=== PATIENT | female | born 1970 | race Caucasian/White ===

== ENCOUNTER 2017-06-15 14:18 | Observation (INO) | payer MEDICAID ==
[2017-06-15 14:23] VITALS: BMI 27.4
[2017-06-15] MEDS ORDERED: Famotidine 20mg/50ml 20 MG/50 ML BAG IVPB STA (14:44)
[2017-06-15] MEDS ORDERED: Sodium Chloride 0.9% 1,000 ML IV STA (14:44)
--- NOTE | 2017-06-15 15:00 | ED PDOC ---
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 Patient is primarily sami speaking and her cotton sampler is translating for her. Prior to arrival patient was at her PMD office for chest pain evaluation and underwent an EKG. Due to her symptoms her PMD instructed her to visit the Emergency department. Patient describes her chest pain as a severe stabbing left sided chest pain, which radiates to her left arm and which is intermittent. her chest pain is exacerbated with exertion and movement. Of note she also experiences chronic upper abdominal which worsened over the past 3 days. Patient also notes occasional nausea but denies recent trauma, fever, chills, vomitting, diarrhea, SOB and bilateral lower extremity edema or any other complaints. Patient denies contraceptive use, recent travels, and history of blood clots. PMD: Time/Duration: 1 week Symptom Course: Intermittent Quality: Stabbing Severity Level: Severe Past Medical History - Provider Review Nursing Documentation Reviewed: Yes - Cardiac Hx Hypertension: Yes - Pulmonary Hx Respiratory Disorders: No - Neurological Hx Neurological Disorder: No - HEENT Hx HEENT Disorder: No - Renal Hx Renal Disorder: No - Endocrine/Metabolic Hx Endocrine Disorders: No - Hematological/Oncological Hx Blood Disorders: No - Integumentary Hx Dermatological Disorder: No - Musculoskeletal/Rheumatological Hx Musculoskeletal Disorders: No - Gastrointestinal Hx Gastrointestinal Disorders: No - Genitourinary/Gynecological Hx Genitourinary Disorders: No - Psychiatric Hx Emotional Abuse: No Hx Physical Abuse: No Hx Substance Use: No - Anesthesia Hx Malignant Hyperthermia: No - Suicidal Assessment Feels Threatened In Home Enviroment: No Family/Social History - Physician Review Nursing Documentation Reviewed: Yes Family/Social History: Diabetes (mother), CAD/ND (Mother) Smoking Status: Never Smoked Hx Alcohol Use: No Hx Substance Use: No Allergies/Home Meds Allergies/Adverse Reactions: Allergies Penicillins Allergy (Verified 06/15/17 20:23) RASH Home Medications: Home Meds Medication Instructions Recorded Confirmed Bisoprolol/HCTZ [Ziac 5 MG-6.25 MG] 1 tab PO DAILY 06/15/17 06/15/17 Losartan [Cozaar] 50 mg PO DAILY 06/15/17 06/15/17 Review of Systems - Physician Review All systems were reviewed & negative as marked: Yes - Review of Systems Constitutional: absent: Fevers, Night Sweats Respiratory: absent: SOB Cardiovascular: Chest Pain (left sided, radiates down left arm). absent: Edema Gastrointestinal: Abdominal Pain (Chronic), Nausea (Occasional). absent: Diarrhea, Vomiting Physical Exam Vital Signs Reviewed: Yes Vital Signs Temp Pulse Pulse Resp BP BP Pulse Ox 06/15/17 17:31 18 98 06/15/17 16:40 98.3 F 93 H 22 140/95 H 97 06/15/17 16:16 102 H 17 117/88 99 06/15/17 15:00 100 H 19 114/90 99 06/15/17 14:38 110 H 157/95 H 06/15/17 14:35 98.2 F 115 H 19 157/95 H 98 06/15/17 14:34 98.2 F 115 H 19 157/95 H 100 Temperature: Afebrile Blood Pressure: Hypertensive Pulse: Tachycardic Respiratory Rate: Normal Appearance: Positive for: Well-Appearing, Non-Toxic, Comfortable Pain Distress: None Mental Status: Positive for: Alert and Oriented X 3 - Systems Exam Head: Present: Atraumatic, Normocephalic Pupils: Present: PERRL Extroacular Muscles: Present: EOMI Conjunctiva: Present: Normal Mouth: Present: Moist Mucous Membranes Neck: Present: Normal Range of Motion Respiratory/Chest: Present: Clear to Auscultation, Good Air Exchange, Tender to Palpation (left sided chest wall tenderness to palpation, no ecchymosis). No: Respiratory Distress, Accessory Muscle Use Cardiovascular: Present: Regular Rate and Rhythm, Normal S1, S2. No: Murmurs Abdomen: Present: Tenderness (chronic upper abdominal tenderness to palpation), Normal Bowel Sounds. No: Distention, Peritoneal Signs, Rebound, Guarding Upper Extremity: Present: Normal Inspection, NORMAL PULSES. No: Cyanosis, Edema Lower Extremity: Present: Normal Inspection, NORMAL PULSES. No: Edema, CALF TENDERNESS Neurological: Present: GCS=15, CN II-XII Intact, Speech Normal Skin: Present: Warm, Dry, Normal Color. No: Rashes Psychiatric: Present: Alert, Oriented x 3, Normal Insight, Normal Concentration Medical Decision Making ED Course and Treatment: 06/15/17 14:43 Impression: A 46 year old female with left sided chest pain. Patient also notes chronic upper abdominal pain with nausea. Differential Diagnosis included but are not limited to: ACS vs. Musculoskeletal vs. Anemia vs. Low probability for PE Plan: -- Chest xray -- EKG -- Labs -- Aspirin, Pepcid and IV fluids -- Reassess and disposition Progress Notes: EKG shows sinus tachycardia at 117 BPM with normal intervals, no ST-segment elevations. Interpreted by me. 06/15/17 15:38 Labs reviewed. Troponin negative. Dimer negative. Case discussed with Dr. Dalal who will admit patient to telemetry observation. Report Date : 06/15/2017 16:02:46 Procedure: Chest xray Dictator : Elidia Interiano MD IMPRESSION: No active pulmonary disease. - Lab Interpretations Lab Results: 06/15/17 14:50 06/15/17 14:50 Lab Results 06/15/17 14:50: Hemoglobin A1c 5.4 06/15/17 14:50: Triglycerides 204 H, Cholesterol 179, LDL Cholesterol Direct 87 , HDL Cholesterol 51 06/15/17 14:50: PT 11.0, INR 0.97, APTT 31.9, D-Dimer, Quantitative < 200 06/15/17 14:50: Sodium 143, Potassium 3.9, Chloride 104, Carbon Dioxide 28, Anion Gap 15, BUN 14, Creatinine 0.6 L, Est GFR ( Amer) > 60, Est GFR ( Non-Af Amer) > 60, Random Glucose 115 H, Calcium 9.4, Magnesium 2.2, Total Bilirubin 0.4, AST 21, ALT 25, Alkaline Phosphatase 99, Lactate Dehydrogenase 267 L, Total Creatine Kinase 52, Troponin I < 0.01, Total Protein 7.5, Albumin 4.2, Globulin 3.2, Albumin/Globulin Ratio 1.3, Lipase 88 06/15/17 14:50: WBC 7.7, RBC 4.35, Hgb 12.1, Hct 37.4, MCV 86.0, MCH 27.8, MCHC 32.4, RDW 13.9, Plt Count 305, MPV 9.7, Gran % 61.8, Lymph % (Auto) 31.3, [place] % (Auto) 6.1 H, Eos % (Auto) 0.5 L, Baso % (Auto) 0.3, Gran # 4.74, Lymph # ( Auto) 2.4, [place] # (Auto) 0.5, Eos # (Auto) 0.0, Baso # (Auto) 0.02 I have reviewed the lab results: Yes - RAD Interpretation Radiology Orders: 06/15/17 14:43 CHEST PORTABLE [RAD] Stat - Medication Orders Current Medication Orders: Acetaminophen (Tylenol 325mg Tab) 650 mg PO Q4H PRN PRN Reason: Pain, moderate (4-7) Enoxaparin Sodium (Lovenox) 60 mg SC Q12H TU PRN Reason: Protocol Last Admin: 06/15/17 21:59 Dose: 60 mg Subcutaneous Administrations Document 06/15/17 21:59 AP (Rec: 06/15/17 21:59 AP [id number]) Injection Site MAR Injection Site Right Abdomen Charges for Administration # of Subcutaneous Administrations 1 Ketorolac Tromethamine (Toradol) 15 mg IVP Q8H PRN PRN Reason: Pain, severe (8-10) Losartan Potassium (Cozaar) 50 mg PO DAILY TU Ondansetron HCl (Zofran Inj) 4 mg IVP Q6H PRN PRN Reason: Nausea/Vomiting Oxycodone/Acetaminophen (Percocet 10/325 Mg Tab) 1 tab PO Q6H PRN PRN Reason: Pain, moderate (4-7) Discontinued Medications Acetaminophen (Tylenol 325mg Tab) 650 mg PO Q4H PRN PRN Reason: Fever >100.4 F Aspirin (Aspirin) 325 mg PO STAT STA Stop: 06/15/17 14:43 Last Admin: 06/15/17 15:25 Dose: 325 mg Famotidine (Pepcid 20mg/50ml Premix) 20 mg in 50 mls @ 100 mls/hr IVPB STAT STA Stop: 06/15/17 15:13 Last Admin: 06/15/17 15:25 Dose: 100 mls/hr eMAR Start Stop Document 06/15/17 15:25 [email or web address] (Rec: 06/15/17 15:25 [email or web address] [id number]) Intravenous Solution Start Date 06/15/17 Start Time 15:25 End Date 06/15/17 Sodium Chloride (Sodium Chloride 0.9%) 1,000 mls @ 999 mls/hr IV .Q1H1M STA Stop: 06/15/17 15:44 Last Admin: 06/15/17 15:24 Dose: 999 mls/hr eMAR Start Stop Document 06/15/17 15:24 [email or web address] (Rec: 06/15/17 15:25 [email or web address] [id number]) Intravenous Solution Start Date 06/15/17 Start Time 15:25 End Date 06/15/17 Ketorolac Tromethamine (Toradol) 30 mg IVP STAT STA Stop: 06/15/17 16:03 Last Admin: 06/15/17 16:27 Dose: 30 mg MAR Pain Assessment Document 06/15/17 16:27 [facility] (Rec: 06/15/17 16:28 [facility] [id number]) Pain Reassessment Is this a pain reassessment? No Sleep Is patient sleeping during reassessment? No Presence of Pain Presence of Pain Yes Pain Scale Used Pain Scale Used Numeric Location Pain Location Body Site Chest Description Description Constant Intensity of Pain at present 7 Pain Behavior Facial Grimacing Aggravating Factors Changing Position Alleviating Factors/Management Medication Techniques Alleviating Factors Medication IVP Administration Document 06/15/17 16:27 [facility] (Rec: 06/15/17 16:28 [facility] [id number]) Charges for Administration # of IVP Administrations 1 Losartan Potassium (Cozaar) 50 mg PO DAILY TU Losartan Potassium (Cozaar) 50 mg PO DAILY ONE Stop: 06/16/17 18:56 Losartan Potassium (Cozaar) 50 mg PO DAILY TU Losartan Potassium (Cozaar) 50 mg PO ONCE ONE Stop: 06/16/17 18:56 Losartan Potassium (Cozaar) 50 mg PO ONCE ONE Stop: 06/15/17 18:59 Last Admin: 06/15/17 20:28 Dose: 50 mg MAR Pulse and Blood Pressure Document 06/15/17 20:28 AP (Rec: 06/15/17 20:28 AP [id number]) Pulse Pulse Rate (60-90) 89 Blood Pressure Blood Pressure (100/60-150/90) 134/93 Pneumococcal Polyvalent Vaccine (Pneumovax 23 Vaccine) 0.5 ml IM .ONCE ONE Stop: 06/15/17 22:13 - Scribe Statement The provider has reviewed the documentation as recorded by the Scribe [place] training under Zaida Marmolejo Provider Scribe Attestation: All medical record entries made by the Scribe were at my direction and personally dictated by me. I have reviewed the chart and agree that the record accurately reflects my personal performance of the history, physical exam, medical decision making, and the department course for this patient. I have also personally directed, reviewed, and agree with the discharge instructions and disposition. Disposition/Present on Arrival - Present on Arrival Any Indicators Present on Arrival: No History of DVT/PE: No History of Uncontrolled Diabetes: No Urinary Catheter: No History of Decub. Ulcer: No History Surgical Site Infection Following: None - Disposition Have Diagnosis and Disposition been Completed?: Yes Diagnosis: Chest pain Disposition: HOSPITALIZED Disposition Time: 15:41 Patient Plan: Admission Patient Problems: Current Active Problems Problem Status Onset Chest pain Acute Condition: FAIR
[2017-06-15 15:08] LABS: BASO # 0.02 K/mm3 (0.0-2.0); BASO % 0.3 % (0.0-3.0); EOS % 0.5 % (1.5-5.0); GRAN # 4.74 (1.4-6.5); GRAN % 61.8 % (50.0-68.0); HEMOGLOBIN 12.1 g/dL (12.0-16.0); LYMPH # 2.4 (1.2-3.4); LYMPH % 31.3 % (22.0-35.0); MEAN CORPUSCULAR HEMOGLOBIN 27.8 pg (25.0-35.0); MEAN CORPUSCULAR HGB CONC 32.4 g/dl (31.0-37.0); MEAN PLATELET VOLUME 9.7 fl (7.0-11.0); MONO # 0.5 (0.1-0.6); MONO % 6.1 % (1.0-6.0); RBC 4.35 10^6/uL (3.5-6.1); RED CELL DISTRIBUTION WIDTH 13.9 % (11.5-14.5); WHITE BLOOD COUNT 7.7 10^3/ul (4.5-11.0)
[2017-06-15 15:13] LABS: ALB/GLOB RATIO 1.3 (1.1-1.8); ALBUMIN 4.2 g/dL (3.0-4.8); ALT/SGPT 25 U/L (7-56); AST/SGOT 21 U/L (14-36); BLOOD UREA NITROGEN 14 mg/dL (7-21); CALCIUM 9.4 mg/dL (8.4-10.5); GFR AFRICAN-AMERICAN > 60; GFR NON-AFRICAN AMERICAN > 60; LIPASE 88 U/L (23-300)
[2017-06-15 15:16] LABS: D DIMER < 200 ng/mL (0-243); INR 0.97 (0.93-1.08); PARTIAL THROMBOPLASTIN TIME 31.9 Seconds (25.1-36.5)
[2017-06-15 15:24] LABS: TROPONIN I < 0.01 ng/mL
--- NOTE | 2017-06-15 15:58 | CP.PCM.HP ---
<Twin Phelps - Last Filed: 06/15/17 17:09> History of Present Illness - History of Present Illness History of Present Illness: Subjective: Patient is a 46 year old female with a past medical history of hypertension, uterus fibroids, and chronic back , who presents to the Emergency department for evaluation and treatment of chest pain which started 3 weeks ago after experiencing emotional stress secondary to family issues. It is important to note that prior to arrival patient was evaluated at her PMD's office and was advised to visit ED for further care. The chest pain originates in the left parasternal region and radiates across her chest to the right and down her left arm. She characterizes it as being sharp in nature and is rated a 10/10. The chest pain is exacerbated with exertion and movement. It is associated with dizziness, SOB, and nausea. Patient denies contraceptive use, recent travels, and history of blood clots. Patient also admits to increased urinary frequency. Denies fever, chills, abdominal pain, vomiting, diarrhea, and constipation. PMHx: asthma, urterine fibroids, hypertension, cervical and lumbar intravertebral disk herniation PSHx: cholecystitis, tonsillectomy Allergies: PCN (hives) Social Hx: denies ETOH use, tobacco use, and illicit drug use Family Hx: mother- DM, CAD; Father- lung cancer Medications: please see MAR PMD: Dr. Thomas Physical Examination: - Constitutional Appears: Well, Non-toxic - Head Exam Head Exam: ATRAUMATIC, NORMAL INSPECTION, NORMOCEPHALIC - Eye Exam Eye Exam: EOMI - ENT Exam ENT Exam: Mucous Membranes Moist - Respiratory Exam Respiratory Exam: Clear to Auscultation Bilateral, NORMAL BREATHING PATTERN - Cardiovascular Exam Cardiovascular Exam: Tachycardia, +S1, +S2 - GI/Abdominal Exam GI & Abdominal Exam: Normal Bowel Sounds, Tenderness to palpation - Extremities Exam Extremities exam: Positive for: calf tenderness, tenderness to palpation - Neurological Exam Neurological exam: Alert, Altered, Oriented x3 - MSK Exam MSK exam: chest wall tender to palpation - Psychiatric Exam Psychiatric exam: Anxious - Skin Skin Exam: Dry, Warm Assessment and Plan: Patient is a 46 year old female with a past medical history of hypertension, uterus fibroids, and chronic back , who was admitted for evaluation and treatment of chest pain. Chest Pain - reproducible on palpation - rule out ACS - rule out PE- d-dimer less than 200 - EKG reviewed and appreciated- Sinus tachycardia HR 117bpm, QTc 467ms, no definitive ST or T wave changes - CXR reviewed and appreciated- No active pulmonary disease - Echocardiogram ordered and pending - troponins negative x 1, trend cardiac isoenzymes - lipid profile and A1c ordered and pending - cardiology consulted- appreciate recommendations Hx of HTN - BP reviewed, trended, and appreciated- 110s/90s - continue home losartan Chronic Back Pain; MSK Pain - Tylenol prn Abdominal Pain - LFTS within normal limits - abdominal ultrasound ordered and pending Urinary Frequency - UA ordered and pending Prophylaxis - DVT ppx- subq heparin, scds - GI ppx- not indicated Patient case reviewed with and plan approved by attending physician, Dr. Enrique. Present on Admission - Present on Admission Any Indicators Present on Admission: No Past Patient History - Past Social History Smoking Status: Never Smoked - CARDIAC Hx Hypertension: Yes - PULMONARY Hx Respiratory Disorders: No - NEUROLOGICAL Hx Neurological Disorder: No - HEENT Hx HEENT Problems: No - RENAL Hx Chronic Kidney Disease: No - ENDOCRINE/METABOLIC Hx Endocrine Disorders: No - HEMATOLOGICAL/ONCOLOGICAL Hx Blood Disorders: No - INTEGUMENTARY Hx Dermatological Problems: No - MUSCULOSKELETAL/RHEUMATOLOGICAL Hx Musculoskeletal Disorders: No - GASTROINTESTINAL Hx Gastrointestinal Disorders: No - GENITOURINARY/GYNECOLOGICAL Hx Genitourinary Disorders: No - PSYCHIATRIC Hx Emotional Abuse: No Hx Physical Abuse: No Hx Substance Use: No - SURGICAL HISTORY Hx Surgeries: No - ANESTHESIA Hx Malignant Hyperthermia: No Meds Allergies/Adverse Reactions: Allergies Allergy/AdvReac Type Severity Reaction Status Date / Time Penicillins Allergy RASH Verified 06/15/17 20:23 Physical Exam - Constitutional Appears: Well, Non-toxic - Head Exam Head Exam: ATRAUMATIC, NORMAL INSPECTION, NORMOCEPHALIC - Eye Exam Eye Exam: EOMI - ENT Exam ENT Exam: Mucous Membranes Moist - Respiratory Exam Respiratory Exam: Clear to Auscultation Bilateral, NORMAL BREATHING PATTERN - Cardiovascular Exam Cardiovascular Exam: Tachycardia, +S1, +S2 - GI/Abdominal Exam GI & Abdominal Exam: Normal Bowel Sounds, Tenderness - Extremities Exam Extremities exam: Positive for: calf tenderness, tenderness - Neurological Exam Neurological exam: Alert, Altered, Oriented x3 - Psychiatric Exam Psychiatric exam: Anxious - Skin Skin Exam: Dry, Warm Results - Vital Signs Recent Vital Signs: Last Vital Signs Temp 98.2 F 06/15/17 14:35 Pulse 100 H 06/15/17 15:00 Resp 19 06/15/17 15:00 BP 114/90 06/15/17 15:00 Pulse Ox 99 06/15/17 15:00 - Labs Result Diagrams: 06/15/17 14:50 06/15/17 14:50 Labs: Laboratory Results - last 24 hr 06/15/17 06/15/17 06/15/17 14:50 14:50 14:50 WBC 7.7 RBC 4.35 Hgb 12.1 Hct 37.4 MCV 86.0 MCH 27.8 MCHC 32.4 RDW 13.9 Plt Count 305 MPV 9.7 Gran % 61.8 Lymph % (Auto) 31.3 [place] % (Auto) 6.1 H Eos % (Auto) 0.5 L Baso % (Auto) 0.3 Gran # 4.74 Lymph # (Auto) 2.4 Sierra # (Auto) 0.5 Eos # (Auto) 0.0 Baso # (Auto) 0.02 PT 11.0 INR 0.97 APTT 31.9 D-Dimer, Quantitative < 200 Sodium 143 Potassium 3.9 Chloride 104 Carbon Dioxide 28 Anion Gap 15 BUN 14 Creatinine 0.6 L Est GFR ( Amer) > 60 Est GFR (Non-Af Amer) > 60 Random Glucose 115 H Calcium 9.4 Magnesium 2.2 Total Bilirubin 0.4 AST 21 ALT 25 Alkaline Phosphatase 99 Lactate Dehydrogenase 267 L Total Creatine Kinase 52 Troponin I < 0.01 Total Protein 7.5 Albumin 4.2 Globulin 3.2 Albumin/Globulin Ratio 1.3 Lipase 88 <Sylvia Enrique - Last Filed: 06/16/17 17:24> Results - Vital Signs Recent Vital Signs: Last Vital Signs Temp 98.2 F 06/16/17 12:00 Pulse 91 H 06/16/17 14:00 Resp 20 06/16/17 12:00 BP 123/99 H 06/16/17 13:37 Pulse Ox 99 06/16/17 06:00 - Labs Result Diagrams: 06/16/17 07:00 06/16/17 07:00 Labs: Laboratory Results - last 24 hr 06/15/17 06/15/17 06/15/17 20:36 20:36 20:42 WBC RBC Hgb Hct MCV MCH MCHC RDW Plt Count MPV Gran % Lymph % (Auto) Sierra % (Auto) Eos % (Auto) Baso % (Auto) Gran # Lymph # (Auto) Sierra # (Auto) Eos # (Auto) Baso # (Auto) PT INR Sodium Potassium Chloride Carbon Dioxide Anion Gap BUN Creatinine Est GFR ( Amer) Est GFR (Non-Af Amer) Random Glucose Calcium Magnesium Total Bilirubin AST ALT Alkaline Phosphatase Lactate Dehydrogenase 261 L Total Creatine Kinase 52 Troponin I < 0.01 Total Protein Albumin Globulin Albumin/Globulin Ratio TSH 3rd Generation 2.29 Urine Color Yellow Urine Appearance Clear Urine pH 7.0 Ur Specific [place] 1.020 Urine Protein Negative Urine Glucose (UA) Negative Urine Ketones Negative Urine Blood Negative Urine Nitrate Negative Urine Bilirubin Negative Urine Urobilinogen 0.2 Ur Leukocyte Esterase Negative Urine HCG, Qual Negative Hep Bs Antigen Hep B Core IgM Ab 06/16/17 06/16/17 06/16/17 02:25 06:00 06:30 WBC RBC Hgb Hct MCV MCH MCHC RDW Plt Count MPV Gran % Lymph % (Auto) Sierra % (Auto) Eos % (Auto) Baso % (Auto) Gran # Lymph # (Auto) Sierra # (Auto) Eos # (Auto) Baso # (Auto) PT INR Sodium Potassium Chloride Carbon Dioxide Anion Gap BUN Creatinine Est GFR ( Amer) Est GFR (Non-Af Amer) Random Glucose Calcium Magnesium 2.1 Total Bilirubin AST ALT Alkaline Phosphatase Lactate Dehydrogenase 247 L Total Creatine Kinase 47 Troponin I < 0.01 Total Protein Albumin Globulin Albumin/Globulin Ratio TSH 3rd Generation Urine Color Urine Appearance Urine pH Ur Specific [place] Urine Protein Urine Glucose (UA) Urine Ketones Urine Blood Urine Nitrate Urine Bilirubin Urine Urobilinogen Ur Leukocyte Esterase Urine HCG, Qual Hep Bs Antigen Negative Hep B Core IgM Ab Negative 06/16/17 06/16/17 06/16/17 07:00 07:00 11:00 WBC 8.0 RBC 3.92 Hgb 10.8 L Hct 33.6 L MCV 85.7 MCH 27.6 MCHC 32.1 RDW 14.1 Plt Count 300 MPV 9.7 Gran % 58.2 Lymph % (Auto) 34.6 Sierra % (Auto) 6.1 H Eos % (Auto) 1.0 L Baso % (Auto) 0.1 Gran # 4.66 Lymph # (Auto) 2.8 Sierra # (Auto) 0.5 Eos # (Auto) 0.1 Baso # (Auto) 0.01 PT 11.7 INR 1.02 Sodium 140 Potassium 3.5 L Chloride 104 Carbon Dioxide 25 Anion Gap 15 BUN 15 Creatinine 0.6 L Est GFR ( Amer) > 60 Est GFR (Non-Af Amer) > 60 Random Glucose 90 Calcium 9.0 Magnesium Total Bilirubin 0.3 AST 25 ALT 31 Alkaline Phosphatase 84 Lactate Dehydrogenase Total Creatine Kinase Troponin I Total Protein 6.5 Albumin 3.8 Globulin 2.8 Albumin/Globulin Ratio 1.4 TSH 3rd Generation Urine Color Urine Appearance Urine pH Ur Specific [place] Urine Protein Urine Glucose (UA) Urine Ketones Urine Blood Urine Nitrate Urine Bilirubin Urine Urobilinogen Ur Leukocyte Esterase Urine HCG, Qual Hep Bs Antigen Hep B Core IgM Ab Attending/Attestation - Attestation I have personally seen and examined this patient.: Yes I have fully participated in the care of the patient.: Yes I have reviewed all pertinent clinical information: Yes Notes (Text): 06/16/17 17:22 attending note; Patient seen and examined with resident. Patient is a 46 year old female with a past medical history of hypertension, uterus fibroids, and chronic back pain who presents to the Emergency department for evaluation and treatment of chest pain which started 3 weeks ago after experiencing emotional stress secondary to family issues. EKG shows sinus tachycardia. Troponin 1 set negative. Cardiac enzymes 3 ordered. Echocardiogram ordered. Cardiology evaluation requested. D-dimer is negative. On physical examination tenderness all over the body including chest, legs, abdomen, back. Possible fibromyalgia. no redness or swelling noted. Anxiety; possibly her symptoms are related to emotional stress and anxiety. abdominal pain; abdominal ultrasound ordered. Upon discharge the patient will folwith PMD Dr. thomas.
--- NOTE | 2017-06-15 16:04 | RAD ---
HISTORY: Chest pain COMPARISON: No prior. FINDINGS: LUNGS: The lungs are well inflated and clear. PLEURA: No significant pleural effusion identified, no pneumothorax apparent. CARDIOVASCULAR: Normal. OSSEOUS STRUCTURES: No significant abnormalities. VISUALIZED UPPER ABDOMEN: Normal. OTHER FINDINGS: None. IMPRESSION: No active pulmonary disease.
[2017-06-15 17:39] LABS: HDL CHOLESTEROL 51 mg/dL (29-60)
[2017-06-15 17:50] LABS: LDL CHOLESTEROL 87 mg/dL (0-129)
[2017-06-15] MEDS ORDERED: Oxycodone/Acetaminophen 10/325 mg Tab PO PRN (20:04)
[2017-06-15] MEDS ORDERED: Iohexol 350 MG/100 ML VIAL ONE (20:33)
--- NOTE | 2017-06-15 20:35 | US ---
EXAM: US Abdomen Complete EXAM DATE/TIME: 06/15/2017 5:08 PM CLINICAL HISTORY: The patient age is 46 years old and is female; Pain; Abdominal pain; Other: Complete abdomen; Prior surgery; Surgery date: 6+ months; Surgery type: Gallbladder; Additional info: Abdominal pain/nausea unknown etiology Facility exam id and description: Us abd abdomen complete TECHNIQUE: Real-time ultrasound of the abdomen (complete) with image documentation. COMPARISON: No relevant prior studies available. FINDINGS: Liver: The liver is increased in echogenicity, most commonly due to fatty infiltration, but other chronic liver diseases may have a similar appearance. Within the right hepatic lobe posteriorly, there is a 2.1 x 2.3 x 2.0 cm solid hypoechoic lesion. There is no significant increased vascularity on color flow imaging. The liver measures 16.9 x 11.9 x 17.5 cm. Gallbladder: The gallbladder is absent. Common bile duct: The common bile duct measures are 0.4 cm in diameter, which is within normal limits. Pancreas: The pancreas is obscured by bowel gas. Kidneys: The right kidney measures 11.2 x 1.7 x 4.8 cm. The left kidney measures 12.6 x 6.7 x 5.6 cm. No shadowing stones. No hydronephrosis. Spleen: The spleen measures 12.5 x 4.6 x 7.0 cm, borderline for splenomegaly. Aorta: The visualized proximal segment of the abdominal aorta measures 2.2 cm in diameter, which is within normal limits. The aorta is incompletely visualized. Inferior vena cava: The visualized segment of the IVC is normal in caliber. There is a limited evaluation of the IVC. IMPRESSION: 1. The liver is increased in echogenicity, most commonly due to fatty infiltration, but other chronic liver diseases may have a similar appearance. 2. Within the right hepatic lobe posteriorly, there is a 2.1 x 2.3 x 2.0 cm solid hypoechoic lesion. A nonemergent MRI of the abdomen with/without contrast is recommended. 3. Borderline splenomegaly. 4. Additional findings described above.
[2017-06-15 20:45] LABS: URINE BILIRUBIN NEGATIVE (NEGATIVE); URINE BLOOD NEGATIVE (NEGATIVE); URINE GLUCOSE (UA) NEGATIVE (NEGATIVE); URINE LEUKOCYTE ESTERASE NEGATIVE Leu/uL (NEGATIVE); URINE PROTEIN NEGATIVE mg/dL (<30 mg/dL); URINE UROBILINOGEN 0.2 E.U./dL (<1 E.U./dL)
[2017-06-15 20:47] LABS: URINE APPEARANCE CLEAR (CLEAR); URINE COLOR YELLOW (YELLOW)
[2017-06-15 20:48] LABS: HCG,QUALITATIVE URINE NEGATIVE (NEGATIVE)
--- NOTE | 2017-06-15 21:10 | CARD ---
APPROVED REPORT EKG Measurement Heart [id number] <Conclusion> Sinus tachycardia Otherwise normal ECG
[2017-06-15 21:15] LABS: TROPONIN I < 0.01 ng/mL
--- NOTE | 2017-06-15 21:56 | CT ---
EXAM: CT Angiography Chest With Intravenous Contrast EXAM DATE/TIME: 06/15/2017 8:02 PM CLINICAL HISTORY: The patient age is 46 years old and is female; Pain; Chest pain; Additional info: R/O pe Facility exam id and description: [facility] angio chest pe protocol TECHNIQUE: Axial computed tomographic angiography images of the chest with intravenous contrast using pulmonary embolism protocol. All CT scans at this facility use one or more dose reduction techniques, viz.: automated exposure control; ma/kV adjustment per patient size (including targeted exams where dose is matched to indication; i.e. head); or iterative reconstruction technique. MIP reconstructed images were created and reviewed. Coronal and sagittal reformatted images were created and reviewed. CONTRAST: 94 mL of OMNI 350 administered intravenously. COMPARISON: DX - CHEST PORTABLE 2017-06-15 15:42 FINDINGS: Pulmonary arteries: There is no central pulmonary embolism within the pulmonary trunk or main pulmonary arteries. Evaluation of the remaining peripheral pulmonary arteries is significantly limited by artifact and suboptimal enhancement. Aorta: There is no aneurysm or dissection of the aorta. Lungs: Patchy nonspecific groundglass density is identified within the lungs bilaterally. Differential considerations include interstitial edema, infection , and pneumonitis. There is volume loss of the left lung. No lung mass visualized. Pleural space: No significant effusion. No pneumothorax. Heart: No cardiomegaly. No significant pericardial effusion. No evidence of RV dysfunction. Mediastinum: There is a small hiatal hernia. Thyroid: There is mild heterogeneous density of the thyroid gland. Bones/joints: Mild spondylosis is visualized within the thoracic spine. Within the left eighth rib, there is a 0.6 x 0.4 cm hypodense lytic lesion. Lymph nodes: No enlarged lymph nodes. Liver: There is hypodense fatty infiltration of the liver. Pancreas: Within the tail the pancreas, there is a 0.9 x 0.6 cm focus of hypodensity, which extends out of the field of view of this study. This may be contributed by volume averaging with the adjacent fat versus a small pancreatic lesion. Adrenals: There is a hypodense right adrenal nodule measuring 1.8 x 2.0 cm. This has a density of -4.8 HU, consistent with an adenoma. IMPRESSION: 1. There is no central pulmonary embolism within the pulmonary trunk or main pulmonary arteries. Evaluation of the remaining peripheral pulmonary arteries is significantly limited by artifact and suboptimal enhancement. 2. Patchy nonspecific groundglass density is identified within the lungs bilaterally. Differential considerations include interstitial edema, infection, and pneumonitis. There is volume loss of the left lung. 3. There is hypodense fatty infiltration of the liver. 4. There is a hypodense right adrenal nodule, consistent with an adenoma. 5. Within the tail the pancreas, there is a 0.9 x 0.6 cm focus of hypodensity. This may be contributed by volume averaging with the adjacent fat versus a small pancreatic lesion. This can be further evaluated with a nonemergent CT or MRI of the abdomen. 6. Within the left eighth rib, there is a 0.6 x 0.4 cm hypodense lytic lesion. Follow-up CT is recommended. 7. Incidental/non-acute findings are described above.
[2017-06-15] MEDS: Enoxaparin 60 mg Syringe SC SCH (21:59)
[2017-06-15] MEDS ORDERED: Pneumococcal 23-Valent Vaccine IM ONE (22:12)
[2017-06-16 02:57] LABS: TROPONIN I < 0.01 ng/mL
--- NOTE | 2017-06-16 07:07 | CON ---
DATE: REASON FOR CONSULTATION: Chest pain and abdominal pain. HISTORY OF PRESENT ILLNESS: Patient is a 46-year-old [place] female, who has a history of hypertension and history of cervical disk disease, presented because of what she describes as sharp left precordial chest pain radiating to both shoulders and to the neck. Whenever asked about symptoms of pain, she reported several complaints of pain in the neck, abdomen, back and the chest. The patient is unaware of any prior cardiac history other than a history of hypertension. The patient has a history of cholecystectomy in 2011. She has a history of uterine fibroid and is on progesterone therapy for that; however, she missed taking it for the last menstrual cycle. Patient started taking it in February and she took it now for 2 menstrual cycles for 15 days, each cycle, to control menorrhagia. SOCIAL HISTORY: Nonsmoker, nondrinker. MEDICATIONS: Cozaar 50 mg once a day, heparin 5000 units every 8 hours, Toradol 60 mg intravenous q. 8 hours p.r.n., Zofran 4 mg intravenous every 6 hours p.r.n. for nausea and vomiting. PHYSICAL EXAMINATION: GENERAL: Patient is a middle-aged female who does not appear to be in any acute distress. VITAL SIGNS: Blood pressure 140/95, heart rate 93, temperature 98.3, respirations 22. HEENT: Normocephalic. NECK: Small diffuse goiter is noted. CHEST: Clear. HEART: S1 and S2, regular. ABDOMEN: Diffuse abdominal tenderness and guarding, but no rebound. EXTREMITIES: No edema. Patient did report calf tenderness. DIAGNOSTIC DATA: Chest x-ray was unremarkable. EKG reveals sinus tachycardia at the rate of 117. LABORATORY DATA: CBC; WBC 7.7, hemoglobin 12.1, hematocrit 37.4, platelet count is within normal limit. SMA-7 is within normal limits, except for glucose of 115 and creatinine 0.6. One set of troponin is negative. Lipase is within normal limit. Triglycerides 204. The rest of the lipid profile is within normal limit. D-dimer is within normal limit. PT, PTT and INR are within normal limit. Cervical spine MRI performed in May of last year revealed no acute compression fracture, no retropulsed fragments, mild multilevel degenerative spondylosis - most notably affecting C5-C6, C4-C5, and C3-C4. Thyroid ultrasound; of thyroid gland with mildly thickened isthmus. ASSESSMENT: 1. Chest pain, rule out pulmonary emboli. 2. Rule out hyperthyroidism. 3. Diffuse abdominal pain; unlikely pancreatitis, in view of normal lipase levels. RECOMMENDATIONS: Continue Cozaar 50 mg once a day, subcutaneous heparin 5000 units every 8 hours, obtain stat chest CT angio to rule out pulmonary embolism, obtain stat TSH level, and the patient is scheduled for echocardiographic study tomorrow. I will follow the abdominal ultrasound that we just performed, that was just completed few minutes ago. Case was discussed with the patient's in the bedside. Aniceto Stpales MD
[2017-06-16 07:20] LABS: BASO # 0.01 K/mm3 (0.0-2.0); BASO % 0.1 % (0.0-3.0); EOS # 0.1 (0.0-0.7); GRAN # 4.66 (1.4-6.5); GRAN % 58.2 % (50.0-68.0); HEMOGLOBIN 10.8 g/dL (12.0-16.0); LYMPH # 2.8 (1.2-3.4); LYMPH % 34.6 % (22.0-35.0); MEAN CELL VOLUME 85.7 fl (80.0-105.0); MEAN CORPUSCULAR HEMOGLOBIN 27.6 pg (25.0-35.0); MEAN CORPUSCULAR HGB CONC 32.1 g/dl (31.0-37.0); MEAN PLATELET VOLUME 9.7 fl (7.0-11.0); MONO # 0.5 (0.1-0.6); MONO % 6.1 % (1.0-6.0); RBC 3.92 10^6/uL (3.5-6.1); RED CELL DISTRIBUTION WIDTH 14.1 % (11.5-14.5)
[2017-06-16 07:38] LABS: ALB/GLOB RATIO 1.4 (1.1-1.8); ALBUMIN 3.8 g/dL (3.0-4.8); ALT/SGPT 31 U/L (7-56); AST/SGOT 25 U/L (14-36); BLOOD UREA NITROGEN 15 mg/dL (7-21); GFR AFRICAN-AMERICAN > 60; GFR NON-AFRICAN AMERICAN > 60
[2017-06-16] MEDS ORDERED: Potassium Chloride 40 mEq/30 ml LIQ UD PO ONE (09:44)
--- NOTE | 2017-06-16 10:21 | RAD ---
PROCEDURE: Radiographs of the Chest and Left Ribs. HISTORY: r/o Mets COMPARISON: None available. TECHNIQUE: Frontal radiograph of the chest and multiple oblique radiographs of the left ribs were obtained. FINDINGS: LEFT RIBS: No acute rib fracture or focal lesion visualized. LUNGS: The lungs are well inflated and clear. PLEURA: No pneumothorax or pleural fluid. CARDIOVASCULAR: Normal sized heart. No pulmonary vascular congestion. OTHER FINDINGS: Surgical clips in the right upper quadrant are related to prior cholecystectomy. IMPRESSION: No acute rib fracture. Clear lungs.
--- NOTE | 2017-06-16 10:29 | CP.PCM.CON ---
<Obdulio Phelps - Last Filed: 06/16/17 10:37> History of Present Illness - History of Present Illness History of Present Illness: Initial PGY4 GI Consult Brian Gaines is a 46 year old female with a past medical history of hypertension, uterus fibroids, and chronic back , who presents to the Emergency department for evaluation and treatment of chest pain. She notes that the chest pain started 3 weeks ago. The chest pain originates in the left parasternal region and radiates across her chest to the right and down her left arm. She also complained of RUQ duck[place].since her lap william in 2011. she notes that her pain has been constant and is only illicited on palpatation. She denies any associated abd pain with food intake. She notes intermittent constipation with diarrhea for many years. She denies any previous colonoscopy or endoscopy. Denies fever, chills, abdominal pain, vomiting. CT of chest revealed 0.9cm pancreatic lesion in the tail and abd U/S revealed a 2cm hepatic lesion. PMHx: asthma, urterine fibroids, hypertension, cervical and lumbar intravertebral disk herniation PSHx: cholecystitis, tonsillectomy Allergies: PCN (hives) Social Hx: denies ETOH use, tobacco use, and illicit drug use Family Hx: mother- DM, CAD; Father- lung cancer; denies any hx of GI related malignancies ROS: 12 point ROS conducted, neg other than above Past Patient History - Past Social History Smoking Status: Never Smoked - CARDIAC Hx Hypertension: Yes - PULMONARY Hx Respiratory Disorders: No - NEUROLOGICAL Hx Neurological Disorder: No - HEENT Hx HEENT Problems: No - RENAL Hx Chronic Kidney Disease: No - ENDOCRINE/METABOLIC Hx Endocrine Disorders: No - HEMATOLOGICAL/ONCOLOGICAL Hx Blood Disorders: No - INTEGUMENTARY Hx Dermatological Problems: No - MUSCULOSKELETAL/RHEUMATOLOGICAL Hx Musculoskeletal Disorders: No - GASTROINTESTINAL Hx Gastrointestinal Disorders: No - GENITOURINARY/GYNECOLOGICAL Hx Genitourinary Disorders: No - PSYCHIATRIC Hx Emotional Abuse: No Hx Physical Abuse: No Hx Substance Use: No - SURGICAL HISTORY Hx Surgeries: Yes (TONSILLECTOMY) Hx Cholecystectomy: Yes - ANESTHESIA Hx Malignant Hyperthermia: No Meds Allergies/Adverse Reactions: Allergies Allergy/AdvReac Type Severity Reaction Status Date / Time Penicillins Allergy RASH Verified 06/15/17 20:23 - Medications Medications: Current Medications Acetaminophen (Tylenol 325mg Tab) 650 mg PO Q4H PRN PRN Reason: Pain, moderate (4-7) Enoxaparin Sodium (Lovenox) 60 mg SC Q12H TU PRN Reason: Protocol Last Admin: 06/15/17 21:59 Dose: 60 mg Ketorolac Tromethamine (Toradol) 15 mg IVP Q8H PRN PRN Reason: Pain, severe (8-10) Last Admin: 06/16/17 00:20 Dose: 15 mg Losartan Potassium (Cozaar) 50 mg PO DAILY [facility] Ondansetron HCl (Zofran Inj) 4 mg IVP Q6H PRN PRN Reason: Nausea/Vomiting Oxycodone/Acetaminophen (Percocet 10/325 Mg Tab) 1 tab PO Q6H PRN PRN Reason: Pain, moderate (4-7) Physical Exam - Constitutional Appears: Well, No Acute Distress - Head Exam Head Exam: ATRAUMATIC, NORMOCEPHALIC - Eye Exam Eye Exam: Normal appearance. absent: Scleral icterus - ENT Exam ENT Exam: Mucous Membranes Moist, Normal Exam - Neck Exam Neck exam: Positive for: Normal Inspection - Respiratory Exam Respiratory Exam: Clear to Auscultation Bilateral, NORMAL BREATHING PATTERN. absent: Rhonchi, Wheezes, Respiratory Distress - Cardiovascular Exam Cardiovascular Exam: REGULAR RHYTHM, +S1, +S2 - GI/Abdominal Exam GI & Abdominal Exam: Guarding, Normal Bowel Sounds, Soft, Tenderness (RUQ). absent: Distended, Firm, Hernia, Mass, Organomegaly, Rebound, Rigid - Extremities Exam Extremities exam: Negative for: joint swelling, pedal edema - Neurological Exam Neurological exam: Alert, Oriented x3 - Psychiatric Exam Psychiatric exam: Normal Affect, Normal Mood - Skin Skin Exam: Dry, Intact, Normal Color, Warm Results - Vital Signs Recent Vital Signs: Last Vital Signs Temp 98.2 F 06/16/17 06:00 Pulse 80 06/16/17 06:00 Resp 20 06/16/17 06:00 BP 97/60 L 06/16/17 06:00 Pulse Ox 99 06/16/17 06:00 - Labs Result Diagrams: 06/16/17 07:00 06/16/17 07:00 Labs: Laboratory Results - last 24 hr 06/15/17 06/15/17 06/15/17 20:36 20:36 20:42 WBC RBC Hgb Hct MCV MCH MCHC RDW Plt Count MPV Gran % Lymph % (Auto) Grant % (Auto) Eos % (Auto) Baso % (Auto) Gran # Lymph # (Auto) Grant # (Auto) Eos # (Auto) Baso # (Auto) Sodium Potassium Chloride Carbon Dioxide Anion Gap BUN Creatinine Est GFR ( Amer) Est GFR (Non-Af Amer) Random Glucose Calcium Total Bilirubin AST ALT Alkaline Phosphatase Lactate Dehydrogenase 261 L Total Creatine Kinase 52 Troponin I < 0.01 Total Protein Albumin Globulin Albumin/Globulin Ratio TSH 3rd Generation 2.29 Urine Color Yellow Urine Appearance Clear Urine pH 7.0 Ur Specific [place] 1.020 Urine Protein Negative Urine Glucose (UA) Negative Urine Ketones Negative Urine Blood Negative Urine Nitrate Negative Urine Bilirubin Negative Urine Urobilinogen 0.2 Ur Leukocyte Esterase Negative Urine HCG, Qual Negative 06/16/17 06/16/17 06/16/17 02:25 07:00 07:00 WBC 8.0 RBC 3.92 Hgb 10.8 L Hct 33.6 L MCV 85.7 MCH 27.6 MCHC 32.1 RDW 14.1 Plt Count 300 MPV 9.7 Gran % 58.2 Lymph % (Auto) 34.6 Grant % (Auto) 6.1 H Eos % (Auto) 1.0 L Baso % (Auto) 0.1 Gran # 4.66 Lymph # (Auto) 2.8 Grant # (Auto) 0.5 Eos # (Auto) 0.1 Baso # (Auto) 0.01 Sodium 140 Potassium 3.5 L Chloride 104 Carbon Dioxide 25 Anion Gap 15 BUN 15 Creatinine 0.6 L Est GFR ( Amer) > 60 Est GFR (Non-Af Amer) > 60 Random Glucose 90 Calcium 9.0 Total Bilirubin 0.3 AST 25 ALT 31 Alkaline Phosphatase 84 Lactate Dehydrogenase 247 L Total Creatine Kinase 47 Troponin I < 0.01 Total Protein 6.5 Albumin 3.8 Globulin 2.8 Albumin/Globulin Ratio 1.4 TSH 3rd Generation Urine Color Urine Appearance Urine pH Ur Specific [place] Urine Protein Urine Glucose (UA) Urine Ketones Urine Blood Urine Nitrate Urine Bilirubin Urine Urobilinogen Ur Leukocyte Esterase Urine HCG, Qual Assessment & Plan - Assessment and Plan (Free Text) Assessment: Brian Gaines is a 46F w/ hx of HTn astma who presented to the Et with complaints of Chest pain. she was incidentally found to have hepatic lesion of 2cm and a pancreatic lesion of 0.9 in the taile Hepatic lesion Pancreatic lesion chronic abd pain chest pain anxiety Plan: -recommend triple phase CT with focus on liver and pancreas -will send for viral hep panel -Ct chest and Us abd noted -diet as tolerated -continue PPI -will wait on triple phase to determine further workup -avoid NSAIDs d/w Dr. page <Elias Page - Last Filed: 06/16/17 10:52> Meds - Medications Medications: Current Medications Acetaminophen (Tylenol 325mg Tab) 650 mg PO Q4H PRN PRN Reason: Pain, moderate (4-7) Enoxaparin Sodium (Lovenox) 60 mg SC Q12H TU PRN Reason: Protocol Last Admin: 06/15/17 21:59 Dose: 60 mg Ketorolac Tromethamine (Toradol) 15 mg IVP Q8H PRN PRN Reason: Pain, severe (8-10) Last Admin: 06/16/17 00:20 Dose: 15 mg Losartan Potassium (Cozaar) 50 mg PO DAILY [facility] Ondansetron HCl (Zofran Inj) 4 mg IVP Q6H PRN PRN Reason: Nausea/Vomiting Oxycodone/Acetaminophen (Percocet 10/325 Mg Tab) 1 tab PO Q6H PRN PRN Reason: Pain, moderate (4-7) Results - Vital Signs Recent Vital Signs: Last Vital Signs Temp 98.2 F 06/16/17 06:00 Pulse 80 06/16/17 06:00 Resp 20 06/16/17 06:00 BP 97/60 L 06/16/17 06:00 Pulse Ox 99 06/16/17 06:00 - Labs Result Diagrams: 06/16/17 07:00 06/16/17 07:00 Labs: Laboratory Results - last 24 hr 06/15/17 06/15/17 06/15/17 20:36 20:36 20:42 WBC RBC Hgb Hct MCV MCH MCHC RDW Plt Count MPV Gran % Lymph % (Auto) Grant % (Auto) Eos % (Auto) Baso % (Auto) Gran # Lymph # (Auto) Grant # (Auto) Eos # (Auto) Baso # (Auto) Sodium Potassium Chloride Carbon Dioxide Anion Gap BUN Creatinine Est GFR ( Amer) Est GFR (Non-Af Amer) Random Glucose Calcium Magnesium Total Bilirubin AST ALT Alkaline Phosphatase Lactate Dehydrogenase 261 L Total Creatine Kinase 52 Troponin I < 0.01 Total Protein Albumin Globulin Albumin/Globulin Ratio TSH 3rd Generation 2.29 Urine Color Yellow Urine Appearance Clear Urine pH 7.0 Ur Specific [place] 1.020 Urine Protein Negative Urine Glucose (UA) Negative Urine Ketones Negative Urine Blood Negative Urine Nitrate Negative Urine Bilirubin Negative Urine Urobilinogen 0.2 Ur Leukocyte Esterase Negative Urine HCG, Qual Negative 06/16/17 06/16/17 06/16/17 02:25 06:30 07:00 WBC 8.0 RBC 3.92 Hgb 10.8 L Hct 33.6 L MCV 85.7 MCH 27.6 MCHC 32.1 RDW 14.1 Plt Count 300 MPV 9.7 Gran % 58.2 Lymph % (Auto) 34.6 Grant % (Auto) 6.1 H Eos % (Auto) 1.0 L Baso % (Auto) 0.1 Gran # 4.66 Lymph # (Auto) 2.8 Grant # (Auto) 0.5 Eos # (Auto) 0.1 Baso # (Auto) 0.01 Sodium Potassium Chloride Carbon Dioxide Anion Gap BUN Creatinine Est GFR ( Amer) Est GFR (Non-Af Amer) Random Glucose Calcium Magnesium 2.1 Total Bilirubin AST ALT Alkaline Phosphatase Lactate Dehydrogenase 247 L Total Creatine Kinase 47 Troponin I < 0.01 Total Protein Albumin Globulin Albumin/Globulin Ratio TSH 3rd Generation Urine Color Urine Appearance Urine pH Ur Specific [place] Urine Protein Urine Glucose (UA) Urine Ketones Urine Blood Urine Nitrate Urine Bilirubin Urine Urobilinogen Ur Leukocyte Esterase Urine HCG, Qual 06/16/17 07:00 WBC RBC Hgb Hct MCV MCH MCHC RDW Plt Count MPV Gran % Lymph % (Auto) Grant % (Auto) Eos % (Auto) Baso % (Auto) Gran # Lymph # (Auto) Grant # (Auto) Eos # (Auto) Baso # (Auto) Sodium 140 Potassium 3.5 L Chloride 104 Carbon Dioxide 25 Anion Gap 15 BUN 15 Creatinine 0.6 L Est GFR ( Amer) > 60 Est GFR (Non-Af Amer) > 60 Random Glucose 90 Calcium 9.0 Magnesium Total Bilirubin 0.3 AST 25 ALT 31 Alkaline Phosphatase 84 Lactate Dehydrogenase Total Creatine Kinase Troponin I Total Protein 6.5 Albumin 3.8 Globulin 2.8 Albumin/Globulin Ratio 1.4 TSH 3rd Generation Urine Color Urine Appearance Urine pH Ur Specific [place] Urine Protein Urine Glucose (UA) Urine Ketones Urine Blood Urine Nitrate Urine Bilirubin Urine Urobilinogen Ur Leukocyte Esterase Urine HCG, Qual Attending/Attestation - Attestation I have personally seen and examined this patient.: Yes I have fully participated in the care of the patient.: Yes I have reviewed all pertinent clinical information: Yes Notes (Text): 06/16/17 10:46 I have seen and examined patient with GI fellow. Agree with above documentation with the following additions. In brief, this is a 46 year old female with history of asthma, HTN, chronic abdominal pain who presents to hospital with complaint of chest pain following emotional argument with family members. GI called for evaluation of abdominal pain which she describes as RUQ, sharp, 8/10 intensity and radiating to back, worse with movement. She has had chronic pain for past 6 years in similar area, though recently for the past 2 days the pain has become increasingly severe. She denies nausea, vomiting, diarrhea, fever/chills, weight loss. No prior endoscopic evaluation. HTN Asthma Chest pain RUQ abdominal pain Abdominal US reviewed by me showing hepatic lesion and subcentimeter pancreatic tail lesion, normal caliber CBD - Diet as tolerated - Continue with PPI therapy - Follow up cardiology recommendations given chest pain - Obtain viral hepatitis panel. LFTs normal, continue to monitor - Obtain CT triple phase for further evaluation of hepatic lesion - Will continue to monitor patient clinical course
[2017-06-16] MEDS: Enoxaparin 60 mg Syringe SC SCH (11:01)
[2017-06-16 11:24] LABS: INR 1.02 (0.93-1.08); PROTHROMBIN TIME 11.7 SECONDS (9.4-12.5)
--- NOTE | 2017-06-16 11:54 | US ---
HISTORY: Leg pain and swelling. Evaluate for DVT PHYSICIAN(S): Jeff Ontiveros MD. TECHNIQUE: Duplex sonography and color-flow Doppler with graded compression were used to evaluate the deep venous systems of both lower extremities. FINDINGS: The visualized deep venous systems of both lower extremities are sonographically normal and compressible. Normal wave forms and augmentation are seen. There is no sonographic evidence for deep venous thrombosis in the visualized segments of both lower extremities. IMPRESSION: No sonographic evidence for deep venous thrombosis in the visualized segments of both lower extremities.
--- NOTE | 2017-06-16 12:25 | CP.PCM.PN ---
Addendum entered and electronically signed by Twin Phelps DO 06/16/17 12:49: Additional Plan for following assessment: Chronic Back Pain; MSK Pain - motrin prn moderate pain - toradol prn severe pain - neurontin 300mg TID - RA factor and jen with reflex ordered and pending Original Note: <Twin Phelps - Last Filed: 06/16/17 12:46> Subjective - Date & Time of Evaluation Date of Evaluation: 06/16/17 Time of Evaluation: 11:00 - Subjective Subjective: Subjective: Patient seen and examined at bedside. No acute events overnight. States that her baseline chest pain has not changed since admission. Offers no new complaints at this time. Denies fever, chills, nausea, vomiting, diarrhea, and constipation. Physical Examination: - Constitutional Appears: Well, Non-toxic - Head Exam Head Exam: ATRAUMATIC, NORMAL INSPECTION, NORMOCEPHALIC - Eye Exam Eye Exam: EOMI - ENT Exam ENT Exam: Mucous Membranes Moist - Respiratory Exam Respiratory Exam: Clear to Auscultation Bilateral, NORMAL BREATHING PATTERN - Cardiovascular Exam Cardiovascular Exam: +S1, +S2 - GI/Abdominal Exam GI & Abdominal Exam: Normal Bowel Sounds, Tenderness to palpation - Extremities Exam Extremities exam: Positive for: calf tenderness, tenderness to palpation - Neurological Exam Neurological exam: Alert, Altered, Oriented x3 - MSK Exam MSK exam: chest wall tender to palpation - Psychiatric Exam Psychiatric exam: Anxious - Skin Skin Exam: Dry, Warm Assessment and Plan: Patient is a 46 year old female with a past medical history of hypertension, uterus fibroids, and chronic back , who was admitted for evaluation and treatment of chest pain. Chest Pain - reproducible on palpation - rule out PE- d-dimer less than 200 - bilateral ultrasound of the lower extremities- No sonographic evidence for deep venous thrombosis in the visualized segments of both lower extremities. - CTA reviewed and appreciated: There is no central pulmonary embolism within the pulmonary trunk or main pulmonary arteries. Evaluation of the remaining peripheral pulmonary arteries is significantly limited by artifact and suboptimal enhancement. Patchy nonspecific groundglass density is identified within the lungs bilaterally. Differential considerations include interstitial edema, infection, and pneumonitis. There is volume loss of the left lung. There is hypodense fatty infiltration of the liver. There is a hypodense right adrenal nodule, consistent with an adenoma. Within the tail the pancreas, there is a 0.9 x 0.6 cm focus of hypodensity. This may be contributed by volume averaging with the adjacent fat versus a small pancreatic lesion. This can be further evaluated with a nonemergent CT or MRI of the abdomen. Within the left eighth rib, there is a 0.6 x 0.4 cm hypodense lytic lesion - xray ribs- no acute rib fractures - Echocardiogram ordered and pending - rule out acs- troponins negative x 3 - lipid profile- TAGs elevated 204 - HgbA1c- 5.4 - cardiology consulted- appreciate recommendations- recommends continuing losartan 50mg PO daily Hx of HTN - BP reviewed, trended, and appreciated- 110s/90s - continue home losartan Chronic Back Pain; MSK Pain - motrin prn moderate pain - toradol prn severe pain - neurontin 300mg TID Abdominal Pain - LFTS within normal limits - Abdominal ultrasound- The liver is increased in echogenicity, most commonly due to fatty infiltration, but other chronic liver diseases may have a similar appearance. Within the right hepatic lobe posteriorly, there is a 2.1 x 2.3 x 2.0 cm solid hypoechoic lesion. Borderline splenomegaly - GI consulted- appreciate recommendations- liver protocol triple phase CT ordered and pending Urinary Frequency - UA reviewed and appreciated- no indications of UTI Hypokalemia - repleted - mag ordered and pending - monitor closely via CMP Prophylaxis - DVT ppx- lovenox, scds - GI ppx- not indicated Patient case reviewed with and plan approved by attending physician, Dr. Enrique. Objective - Vital Signs/Intake and Output Vital Signs (last 24 hours): Temp Pulse Resp BP Pulse Ox 98.2 F 80 20 97/60 L 99 06/16/17 06:00 06/16/17 06:00 06/16/17 06:00 06/16/17 06:00 06/16/17 06:00 Intake and Output: 06/16/17 06/16/17 06:59 18:59 Intake Total 480 Output Total 2 Balance 478 - Medications Medications: Current Medications Enoxaparin Sodium (Lovenox) 60 mg SC Q12H TU PRN Reason: Protocol Last Admin: 06/16/17 11:01 Dose: 60 mg Gabapentin (Neurontin) 300 mg PO TID TU PRN Reason: Protocol Potassium Chloride (Potassium Chloride 20 Meq/100 Ml) 20 meq in 100 mls @ 50 mls/hr IVPB Q2H [facility] Stop: 06/16/17 15:14 Ibuprofen (Motrin Tab) 400 mg PO Q6H PRN PRN Reason: Pain, moderate (4-7) Ketorolac Tromethamine (Toradol) 15 mg IVP Q8H PRN PRN Reason: Pain, severe (8-10) Last Admin: 06/16/17 00:20 Dose: 15 mg Losartan Potassium (Cozaar) 50 mg PO DAILY [facility] Ondansetron HCl (Zofran Inj) 4 mg IVP Q6H PRN PRN Reason: Nausea/Vomiting - Labs Labs: 06/16/17 07:00 06/16/17 07:00 PT 11.7 SECONDS (9.4-12.5) 06/16/17 11:00 INR 1.02 (0.93-1.08) 06/16/17 11:00 APTT 31.9 Seconds (25.1-36.5) 06/15/17 14:50 <Sylvia Enrique - Last Filed: 06/16/17 17:30> Objective - Vital Signs/Intake and Output Vital Signs (last 24 hours): Temp Pulse Resp BP Pulse Ox 98.2 F 91 H 20 123/99 H 99 06/16/17 12:00 06/16/17 14:00 06/16/17 12:00 06/16/17 13:37 06/16/17 06:00 Intake and Output: 06/16/17 06/16/17 06:59 18:59 Intake Total 480 Output Total 2 Balance 478 - Medications Medications: Current Medications Enoxaparin Sodium (Lovenox) 30 mg SC DAILY [facility] PRN Reason: Protocol Gabapentin (Neurontin) 300 mg PO TID [facility] PRN Reason: Protocol Last Admin: 06/16/17 17:02 Dose: 300 mg Ibuprofen (Motrin Tab) 400 mg PO Q6H PRN PRN Reason: Pain, moderate (4-7) Ketorolac Tromethamine (Toradol) 15 mg IVP Q8H PRN PRN Reason: Pain, severe (8-10) Last Admin: 06/16/17 00:20 Dose: 15 mg Losartan Potassium (Cozaar) 50 mg PO DAILY [facility] Last Admin: 06/16/17 13:37 Dose: 50 mg Ondansetron HCl (Zofran Inj) 4 mg IVP Q6H PRN PRN Reason: Nausea/Vomiting - Labs Labs: 06/16/17 07:00 06/16/17 07:00 PT 11.7 SECONDS (9.4-12.5) 06/16/17 11:00 INR 1.02 (0.93-1.08) 06/16/17 11:00 APTT 31.9 Seconds (25.1-36.5) 06/15/17 14:50 Attending/Attestation - Attestation I have personally seen and examined this patient.: Yes I have fully participated in the care of the patient.: Yes I have reviewed all pertinent clinical information, including history, physical exam and plan: Yes Notes (Text): 06/16/17 17:25 attending note; Patient seen and examined with resident. Patient is a 46 year old female with a past medical history of hypertension, uterus fibroids, and chronic back pain who presents to the Emergency department for evaluation and treatment of chest pain which started 3 weeks ago after experiencing emotional stress secondary to family issues. started on Neurontin. Tachycardia resolved. Troponin x3 negative. Echocardiogram is normal. Cardiology evaluation appreciated. D-dimer is negative. CTA ordered by cardiology showed no pulmonary embolus. Incidental lytic lesion in the left eighth rib. X-ray of rib series is negative for any lesion. bone scan ordered. There is hypodense fatty infiltration of the liver. There is a hypodense right adrenal nodule, consistent with an adenoma. Within the tail the pancreas, there is a 0.9 x 0.6 cm focus of hypodensity. This may be contributed by volume averaging with the adjacent fat versus a small pancreatic lesion. GI evaluation appreciated. Triple phase CT is ordered. Patient is tolerating diet. the diagnosis and follow-up plan discussed with patient in detail.. Upon discharge the patient will follow up with PMD Dr. michael.
--- NOTE | 2017-06-16 12:28 | CARD ---
APPROVED REPORT EXAM: Two-dimensional and M-mode echocardiogram with Doppler and color Doppler. INDICATION Abnormal EKG/Arrhythmia 2D DIMENSIONS Left Atrium (2D)4.0 (1.6-4.0cm)IVSd1.0 (0.7-1.1cm) LVDd4.2 (3.9-5.9cm)PWd1.0 (0.7-1.1cm) LVDs2.8 (2.5-4.0cm)FS (%) 34.0 % LVEF (%)63.3 (>50%) M-Mode DIMENSIONS Aortic Root3.40 (2.2-3.7cm)Aortic Cusp Exc.2.00 (1.5-2.0cm) Aortic Valve AoV Peak Tdmwyrjm407.0cm/Berta Peak GR.8mmHg Mitral Valve MV E Nkbnvxxe96.7cm/sMV A Kkxewrzv51.4cm/sE/A ratio1.3 TDI Lateral E' Peak V11.50cm/sMedial E' Peak V7.70cm/sE/Lateral E'8.6 E/Medial E'12.8 Pulmonary Valve PV Peak Pqvgzedr36.5cm/sPV Peak Grad.3mmHg Tricuspid Valve TR Peak Sgtrcmxb175ly/sRAP XEDBQEHU82dtKdHE Peak Gr.19mmHg PNFV14zaVm LEFT VENTRICLE The left ventricle is normal size. There is normal left ventricular wall thickness. The left ventricular function is normal. The left ventricular ejection fraction is within the normal range. There is normal LV segmental wall motion. The left ventricular diastolic function is normal. RIGHT VENTRICLE The right ventricle is normal size. There is normal right ventricular wall thickness. The right ventricular systolic function is normal. ATRIA The left atrium size is normal. The right atrium size is normal. AORTIC VALVE The aortic valve is normal in structure. No aortic regurgitation is present. There is no aortic valvular stenosis. MITRAL VALVE The mitral valve is normal in structure. Mitral regurgitation is trace. TRICUSPID VALVE The tricuspid valve is normal in structure. There is no tricuspid valve regurgitation noted. GREAT VESSELS The aortic root is normal in size. PERICARDIAL EFFUSION There is no pericardial effusion. <Conclusion> The left ventricle is normal size. There is normal left ventricular wall thickness. The left ventricular function is normal. The left ventricular ejection fraction is within the normal range. There is normal LV segmental wall motion. The left ventricular diastolic function is normal.
[2017-06-16 17:08] LABS: HEPATITIS B SURFACE AG Negative (NEGATIVE)
[2017-06-16 17:14] LABS: HEPATITIS B CORE AB NEGATIVE (NEGATIVE)
[2017-06-16 17:28] LABS: HEPATITIS C ANTIBODY NEGATIVE (NEGATIVE)
[2017-06-16 17:32] LABS: HEPATITIS A IGM NEGATIVE (NEGATIVE)
--- NOTE | 2017-06-16 17:43 | CT ---
PROCEDURE: CT Abdomen and Pelvis with and without intravenous contrast HISTORY: eval pancreatic and liver lesion COMPARISON: CT chest 06/15/2017 TECHNIQUE: Axial images of the abdomen were obtained in the pre contrast, hepatic arterial and portal venous phases of enhancement. Coronal and sagittal reformats were generated. Images of the pelvis were obtained in the portal venous phase. Contrast dose: 150 mL Omnipaque 350 Radiation dose: Total exam DLP = 1316.34 mGy-cm. This CT exam was performed using one or more of the following dose reduction techniques: Automated exposure control, adjustment of the mA and/or kV according to patient size, and/or use of iterative reconstruction technique. FINDINGS: LOWER THORAX: Unremarkable. LIVER: Mild hepatomegaly. The liver measures 20 cm craniocaudal. No mass. No biliary dilatation. Normal attenuation. Globular small area of low attenuation in the medial segment left hepatic lobe adjacent to the fissure for the ligamentum teres, normal variant consistent with aberrant venous drainage. GALLBLADDER AND BILE DUCTS: Status post cholecystectomy PANCREAS: No mass. No pancreatic ductal dilatation. SPLEEN: Unremarkable. ADRENALS: Unremarkable. No mass. KIDNEYS AND URETERS: Unremarkable. No hydronephrosis. No solid mass. VASCULATURE: Unremarkable. No aortic aneurysm. BOWEL: Unremarkable. No obstruction. No gross mural thickening. APPENDIX: Normal appendix. PERITONEUM: Unremarkable. No free fluid. No free air. LYMPH NODES: Unremarkable. No enlarged lymph nodes. BLADDER: Unremarkable. REPRODUCTIVE: Innumerable uterine fibroids, largest right-sided subserosal, 4.2 cm. Left ovarian cyst/cystic mass, 5.0 cm. Correlate with pelvic ultrasound. BONES: No acute fracture. OTHER FINDINGS: None. IMPRESSION: No evidence pancreatic mass. No evidence of fatty infiltration of the liver. Mild hepatomegaly. Numerous uterine fibroids. 5 cm left ovarian cyst/cystic mass. Correlate with pelvic ultrasound.
--- NOTE | 2017-06-16 23:52 | PN ---
DATE: SUBJECTIVE: Patient is still experiencing sharp left-sided chest pain as well as abdominal discomfort. PHYSICAL EXAMINATION: VITAL SIGNS: Blood pressure 123/99, heart rate 98, temperature 98.2, respirations 20, earlier blood pressure was 97/60. HEENT: Normocephalic. EXTREMITIES: No edema. LABORATORY DATA: Reveals hemoglobin and hematocrit 10.8 and 33.6. White count and platelet count are within normal limits. Today's SMA-7 is within normal limits except for potassium of 3.5 and creatinine of 0.6. Three sets of troponins are negative. Rib series revealed no fracture. Venous Doppler of lower extremity, no DVT. Liver protocol triple-phase CT scan, no evidence of pancreatic mass, no evidence of fatty infiltration of the liver, mild hepatomegaly, numerous uterine fibroids, 5 cm left ovarian cyst/cystic mass, correlates with pelvic ultrasound. Abdomen ultrasound, liver has increased echogenicity most likely due to fatty infiltrate, but otherwise chronic liver disease. Borderline splenomegaly. Echocardiographic study, normal left ventricular size, wall thickness, and systolic function. ASSESSMENT: 1. Atypical chest pain. 2. Lytic lesion is noted in the left 8th rib. RECOMMENDATIONS: Case was discussed at length with the medical team. Continue current Cozaar, Lovenox, gabapentin, and p.r.n. IV Zofran. The patient is scheduled for bone scan. Aniceto Staples MD : 06/16/2017 18:27:04
[2017-06-17 06:51] LABS: BASO # 0.03 K/mm3 (0.0-2.0); BASO % 0.4 % (0.0-3.0); EOS # 0.1 (0.0-0.7); EOS % 1.7 % (1.5-5.0); GRAN # 4.92 (1.4-6.5); GRAN % 64.4 % (50.0-68.0); HEMOGLOBIN 10.8 g/dL (12.0-16.0); LYMPH % 26.2 % (22.0-35.0); MEAN CORPUSCULAR HEMOGLOBIN 27.1 pg (25.0-35.0); MEAN CORPUSCULAR HGB CONC 31.5 g/dl (31.0-37.0); MEAN PLATELET VOLUME 9.6 fl (7.0-11.0); MONO # 0.6 (0.1-0.6); MONO % 7.3 % (1.0-6.0); RBC 3.99 10^6/uL (3.5-6.1); RED CELL DISTRIBUTION WIDTH 14.1 % (11.5-14.5); WHITE BLOOD COUNT 7.6 10^3/ul (4.5-11.0)
[2017-06-17 06:57] LABS: ALB/GLOB RATIO 1.3 (1.1-1.8); ALBUMIN 3.6 g/dL (3.0-4.8); CALCIUM 9.1 mg/dL (8.4-10.5); GFR AFRICAN-AMERICAN > 60; GFR NON-AFRICAN AMERICAN > 60
[2017-06-17 07:20] LABS: ALT/SGPT 29 U/L (7-56); AST/SGOT 22 U/L (14-36); BLOOD UREA NITROGEN 12 mg/dL (7-21)
--- NOTE | 2017-06-17 07:29 | CP.PCM.PN ---
Subjective - Date & Time of Evaluation Date of Evaluation: 06/17/17 Objective - Vital Signs/Intake and Output Vital Signs (last 24 hours): Temp Pulse Resp BP Pulse Ox 98.2 F 76 22 110/68 99 06/16/17 18:00 06/16/17 22:00 06/16/17 18:00 06/16/17 18:00 06/16/17 06:00 Intake and Output: 06/17/17 06/17/17 06:59 18:59 Intake Total 180 Balance 180 - Medications Medications: Current Medications Enoxaparin Sodium (Lovenox) 30 mg SC DAILY TU PRN Reason: Protocol Gabapentin (Neurontin) 300 mg PO TID TU PRN Reason: Protocol Last Admin: 06/16/17 17:02 Dose: 300 mg Ibuprofen (Motrin Tab) 400 mg PO Q6H PRN PRN Reason: Pain, moderate (4-7) Last Admin: 06/16/17 18:34 Dose: 400 mg Ketorolac Tromethamine (Toradol) 15 mg IVP Q8H PRN PRN Reason: Pain, severe (8-10) Last Admin: 06/16/17 00:20 Dose: 15 mg Losartan Potassium (Cozaar) 50 mg PO DAILY TU Last Admin: 06/16/17 13:37 Dose: 50 mg Ondansetron HCl (Zofran Inj) 4 mg IVP Q6H PRN PRN Reason: Nausea/Vomiting - Labs Labs: 06/17/17 06:25 06/17/17 06:25 PT 11.7 SECONDS (9.4-12.5) 06/16/17 11:00 INR 1.02 (0.93-1.08) 06/16/17 11:00 APTT 31.9 Seconds (25.1-36.5) 06/15/17 14:50
[2017-06-17 08:00] VITALS: RESP 18; TEMP 96.7; O2SAT 96
[2017-06-17] MEDS ORDERED: Enoxaparin 30 mg Syringe SC SCH (10:00)
[2017-06-17 10:02] VITALS: BP 110/70; PULSE 81
--- NOTE | 2017-06-17 11:01 | CP.PCM.PN ---
<Obdulio Phelps - Last Filed: 06/17/17 11:03> Subjective - Date & Time of Evaluation Date of Evaluation: 06/17/17 Time of Evaluation: 07:30 - Subjective Subjective: PGY4 GI Follow-up Pt seen and examined bedside still has chest pain still has abd pain tolerated diet +BM ROS: 12 point ROS conducted, neg other than above Objective - Vital Signs/Intake and Output Vital Signs (last 24 hours): Temp Pulse Resp BP Pulse Ox 96.7 F L 81 18 110/70 96 06/17/17 06:00 06/17/17 10:01 06/17/17 06:00 06/17/17 10:01 06/17/17 06:00 Intake and Output: 06/17/17 06/17/17 06:59 18:59 Intake Total 180 Balance 180 - Medications Medications: Current Medications Enoxaparin Sodium (Lovenox) 30 mg SC DAILY TU PRN Reason: Protocol Last Admin: 06/17/17 09:59 Dose: 30 mg Gabapentin (Neurontin) 300 mg PO TID [facility] PRN Reason: Protocol Last Admin: 06/17/17 09:59 Dose: 300 mg Ibuprofen (Motrin Tab) 400 mg PO Q6H PRN PRN Reason: Pain, moderate (4-7) Last Admin: 06/16/17 18:34 Dose: 400 mg Ketorolac Tromethamine (Toradol) 15 mg IVP Q8H PRN PRN Reason: Pain, severe (8-10) Last Admin: 06/16/17 00:20 Dose: 15 mg Losartan Potassium (Cozaar) 50 mg PO DAILY [facility] Last Admin: 06/17/17 10:01 Dose: 50 mg Ondansetron HCl (Zofran Inj) 4 mg IVP Q6H PRN PRN Reason: Nausea/Vomiting - Labs Labs: 06/17/17 06:25 06/17/17 06:25 PT 11.7 SECONDS (9.4-12.5) 06/16/17 11:00 INR 1.02 (0.93-1.08) 06/16/17 11:00 APTT 31.9 Seconds (25.1-36.5) 06/15/17 14:50 - Constitutional Appears: Well, No Acute Distress - Head Exam Head Exam: ATRAUMATIC, NORMOCEPHALIC - Eye Exam Eye Exam: Normal appearance - ENT Exam ENT Exam: Mucous Membranes Moist, Normal Exam - Neck Exam Neck Exam: Normal Inspection - Respiratory Exam Respiratory Exam: Clear to Ausculation Bilateral, NORMAL BREATHING PATTERN. absent: Rhonchi, Wheezes, Respiratory Distress - Cardiovascular Exam Cardiovascular Exam: REGULAR RHYTHM, +S1, +S2 - GI/Abdominal Exam GI & Abdominal Exam: Soft, Normal Bowel Sounds. absent: Firm, Guarding, Rigid, Tenderness, Organomegaly, Rebound - Extremities Exam Extremities Exam: absent: Joint Swelling, Pedal Edema - Neurological Exam Neurological Exam: Alert, Awake, Oriented x3 - Psychiatric Exam Psychiatric exam: Normal Affect, Normal Mood - Skin Skin Exam: Dry, Intact, Normal Color, Warm Assessment and Plan - Assessment and Plan (Free Text) Assessment: Brian Gaines is a 46F w/ hx of HTn [facility] who presented to the Et with complaints of Chest pain. she was incidentally found to have hepatic lesion of 2cm and a pancreatic lesion of 0.9 in the taile Chronic abd pain Chest pain anxiety dyspepsia Plan: -Triple phase ruled out any pancreatic or liver lesion -hep viral panel neg -Ct chest and Us abd noted -diet as tolerated -continue PPI -will wait on triple phase to determine further workup -avoid NSAIDs d/w Dr. Maldonado <Camden Maldonado - Last Filed: 06/17/17 11:32> Objective - Vital Signs/Intake and Output Vital Signs (last 24 hours): Temp Pulse Resp BP Pulse Ox 96.7 F L 81 18 110/70 96 06/17/17 06:00 06/17/17 10:01 06/17/17 06:00 06/17/17 10:01 06/17/17 06:00 Intake and Output: 06/17/17 06/17/17 06:59 18:59 Intake Total 180 Balance 180 - Medications Medications: Current Medications Enoxaparin Sodium (Lovenox) 30 mg SC DAILY TU PRN Reason: Protocol Last Admin: 06/17/17 09:59 Dose: 30 mg Gabapentin (Neurontin) 300 mg PO TID TU PRN Reason: Protocol Last Admin: 06/17/17 09:59 Dose: 300 mg Ibuprofen (Motrin Tab) 400 mg PO Q6H PRN PRN Reason: Pain, moderate (4-7) Last Admin: 06/16/17 18:34 Dose: 400 mg Ketorolac Tromethamine (Toradol) 15 mg IVP Q8H PRN PRN Reason: Pain, severe (8-10) Last Admin: 06/16/17 00:20 Dose: 15 mg Losartan Potassium (Cozaar) 50 mg PO DAILY TU Last Admin: 06/17/17 10:01 Dose: 50 mg Ondansetron HCl (Zofran Inj) 4 mg IVP Q6H PRN PRN Reason: Nausea/Vomiting - Labs Labs: 06/17/17 06:25 06/17/17 06:25 PT 11.7 SECONDS (9.4-12.5) 06/16/17 11:00 INR 1.02 (0.93-1.08) 06/16/17 11:00 APTT 31.9 Seconds (25.1-36.5) 06/15/17 14:50 Attending/Attestation - Attestation I have personally seen and examined this patient.: Yes I have fully participated in the care of the patient.: Yes I have reviewed all pertinent clinical information, including history, physical exam and plan: Yes Notes (Text): 06/17/17 11:32 46 year old female admitted with chest pain. She also complains of dyspepsia. CT reviewed, no panc/liver lesions. Recommend daily ppi. Outpatient egd. will sign off. diet as tolerated.
--- NOTE | 2017-06-17 11:31 | US ---
HISTORY: Ovarian cyst COMPARISON: Comparison made with prior study 07/07/2016 TECHNIQUE: Transabdominal -transvaginal sonographic evaluation of the pelvis. FINDINGS: UTERUS: The uterus is anteverted measuring approximately 12.5 x 6.3 x 9.9. cm. There are multiple uterine fibroids again noted. The largest measuring 5.9 cm and the 2nd largest measuring approximately 4.8 cm. Two additional smaller fibroids are present ENDOMETRIUM: Endometrium is thickened measuring approximately 2.0 cm. While this could be due to current menses, the possibility of an endometrial abnormality such as endometrial hyperplasia,, endometrial polyps or endometrial carcinoma. Follow-up bottle packer consultation recommended. . . CERVIX: No cervical abnormality identified. RIGHT OVARY: Right ovary measures approximately 3.8 x 3.3 x 3.6 cm. No solid mass. Normal flow. LEFT OVARY: Left ovary measures approximately 6.3 x 5.8 x 7.2 cm. No solid mass. Normal flow. There is a septated appearing cyst measuring 5.8 x 4.5 x 6.4 cm FREE FLUID: No significant free fluid noted. OTHER FINDINGS: None. IMPRESSION: Uterine fibroids as above. Thickened endometrium which may in part be due to current menses however possibility of endometrial hyperplasia, endometrial polyps or endometrial carcinoma not excluded. Follow-up bottle packer consultation suggested.
--- NOTE | 2017-06-17 12:52 | CP.PCM.DIS ---
<Twin Phelps - Last Filed: 06/17/17 15:34> Provider - Provider Date of Admission: 06/15/17 15:41 Attending physician: Ynes Younger MD Primary care physician: Christos Michael MD Time Spent in preparation of Discharge (in minutes): 45 Diagnosis - Discharge Diagnosis (1) Chest pain Status: Chronic Priority: Medium (2) Hypertension Status: Chronic Priority: Medium (3) Lytic bone lesions on xray Status: Acute Priority: Medium (4) Uterine fibroid Status: Chronic Priority: Medium (5) Ovarian cyst Status: Chronic Priority: Medium Hospital Course - Lab Results Lab Results: Most Recent Lab Values WBC 7.6 10^3/ul (4.5-11.0) 06/17/17 06:25 RBC 3.99 10^6/uL (3.5-6.1) 06/17/17 06:25 Hgb 10.8 g/dL (12.0-16.0) L 06/17/17 06:25 Hct 34.3 % (36.0-48.0) L 06/17/17 06:25 MCV 86.0 fl (80.0-105.0) 06/17/17 06:25 MCH 27.1 pg (25.0-35.0) 06/17/17 06:25 MCHC 31.5 g/dl (31.0-37.0) 06/17/17 06:25 RDW 14.1 % (11.5-14.5) 06/17/17 06:25 Plt Count 282 10^3/uL (120.0-450.0) 06/17/17 06:25 MPV 9.6 fl (7.0-11.0) 06/17/17 06:25 Gran % 64.4 % (50.0-68.0) 06/17/17 06:25 Lymph % (Auto) 26.2 % (22.0-35.0) 06/17/17 06:25 [place] % (Auto) 7.3 % (1.0-6.0) H 06/17/17 06:25 Eos % (Auto) 1.7 % (1.5-5.0) 06/17/17 06:25 Baso % (Auto) 0.4 % (0.0-3.0) 06/17/17 06:25 Gran # 4.92 (1.4-6.5) 06/17/17 06:25 Lymph # (Auto) 2.0 (1.2-3.4) 06/17/17 06:25 [place] # (Auto) 0.6 (0.1-0.6) 06/17/17 06:25 Eos # (Auto) 0.1 (0.0-0.7) 06/17/17 06:25 Baso # (Auto) 0.03 K/mm3 (0.0-2.0) 06/17/17 06:25 PT 11.7 SECONDS (9.4-12.5) 06/16/17 11:00 INR 1.02 (0.93-1.08) 06/16/17 11:00 APTT 31.9 Seconds (25.1-36.5) 06/15/17 14:50 D-Dimer, Quantitative < 200 ng/mL (0-243) 06/15/17 14:50 Sodium 139 mmol/L (132-148) 06/17/17 06:25 Potassium 4.2 mmol/L (3.6-5.0) 06/17/17 06:25 Chloride 104 mmol/L (98-107) 06/17/17 06:25 Carbon Dioxide 24 mmol/L (21-33) 06/17/17 06:25 Anion Gap 15 (10-20) 06/17/17 06:25 BUN 12 mg/dL (7-21) 06/17/17 06:25 Creatinine 0.6 mg/dl (0.7-1.2) L 06/17/17 06:25 Est GFR ( Amer) > 60 06/17/17 06:25 Est GFR (Non-Af Amer) > 60 06/17/17 06:25 Random Glucose 96 mg/dL (70-110) 06/17/17 06:25 Hemoglobin A1c 5.4 % (4.2-6.5) 06/15/17 14:50 Calcium 9.1 mg/dL (8.4-10.5) 06/17/17 06:25 Magnesium 2.1 mg/dL (1.7-2.2) 06/16/17 06:30 Total Bilirubin 0.6 mg/dL (0.2-1.3) 06/17/17 06:25 AST 22 U/L (14-36) 06/17/17 06:25 ALT 29 U/L (7-56) 06/17/17 06:25 Alkaline Phosphatase 80 U/L (38-126) 06/17/17 06:25 Lactate Dehydrogenase 247 U/L (333-699) L 06/16/17 02:25 Total Creatine Kinase 47 U/L (35-230) 06/16/17 02:25 Troponin I < 0.01 ng/mL 06/16/17 02:25 Total Protein 6.3 g/dL (5.8-8.3) 06/17/17 06:25 Albumin 3.6 g/dL (3.0-4.8) 06/17/17 06:25 Globulin 2.8 gm/dL 06/17/17 06:25 Albumin/Globulin Ratio 1.3 (1.1-1.8) 06/17/17 06:25 Triglycerides 204 mg/dL (35-160) H 06/15/17 14:50 Cholesterol 179 mg/dL (130-200) 06/15/17 14:50 LDL Cholesterol Direct 87 mg/dL (0-129) 06/15/17 14:50 HDL Cholesterol 51 mg/dL (29-60) 06/15/17 14:50 Lipase 88 U/L (23-300) 06/15/17 14:50 TSH 3rd Generation 2.29 mIU/mL (0.46-4.68) 06/15/17 20:36 Urine Color Yellow (YELLOW) 06/15/17 20:42 Urine Appearance Clear (CLEAR) 06/15/17 20:42 Urine pH 7.0 (4.7-8.0) 06/15/17 20:42 Ur Specific Mcrae 1.020 (1.005-1.035) 06/15/17 20:42 Urine Protein Negative mg/dL (<30 mg/dL) 06/15/17 20:42 Urine Glucose (UA) Negative mg/dL (NEGATIVE) 06/15/17 20:42 Urine Ketones Negative mg/dL (NEGATIVE) 06/15/17 20:42 Urine Blood Negative (NEGATIVE) 06/15/17 20:42 Urine Nitrate Negative (NEGATIVE) 06/15/17 20:42 Urine Bilirubin Negative (NEGATIVE) 06/15/17 20:42 Urine Urobilinogen 0.2 E.U./dL (<1 E.U./dL) 06/15/17 20:42 Ur Leukocyte Esterase Negative Susanne/uL (NEGATIVE) 06/15/17 20:42 Urine HCG, Qual Negative (NEGATIVE) 06/15/17 20:42 Hepatitis A IgM Ab Negative (NEGATIVE) 06/16/17 06:00 Hep Bs Antigen Negative (NEGATIVE) 06/16/17 06:00 Hep B Core IgM Ab Negative (NEGATIVE) 06/16/17 06:00 Hepatitis C Antibody Negative (NEGATIVE) 06/16/17 06:00 - Hospital Course Hospital Course: Patient is a 46 year old female with a past medical history of hypertension, uterus fibroids, and chronic back , who was admitted for evaluation and treatment of chest pain. With the use of physical examinations, lab work, and imaging the patient was diagnosed with and treated for chest pain (ACS was ruled out) along with the patients chronic medical conditions. During their hospital stay the patient was seen by gastroenterology (Dr. Maldonado) and cardiology (Dr. Rodriguez) whose their recommendations were both appreciated and utilized in the care for this patient. During their hospital stay the patient underwent a chest CTA, abdominal ultrasound, extremity ultrasound, ribs xray, liver CT, transvaginal ultrasound, liver CT, and bone scan which were reviewed, appreciated, and utilized in the management of the patients clinical course. The chest CTA showed no central pulmonary embolism within the pulmonary trunk or main pulmonary arteries, patchy nonspecific groundglass density is identified within the lungs bilaterally, hypodense fatty infiltration of the liver, hypodense right adrenal nodule, consistent with an adenoma. hypodensity within the tail of the pancreas, and eighth rib hypodense lytic lesion. Rib xrays revealed no acute fracture. Ultrasound showed no sonographic evidence for deep venous thrombosis in either lower extremity. Vaginal ultrasound showed uterine fibroids and thickened endometrium. Echocardiogram showed normal LV wall motion and EF of 63%. Liver CT showed no evidence of pancreatic mass, no evidence of fatty infiltration of the liver, mild hepatomegaly, numerous uterine fibroids, 5 cm left ovarian cyst/cystic mass. Patient was treated with antihypertensive medications, gabapentin, motrin amongst other empiric/ therapeutic medications. At this time the patient is medically stable for discharge. Patient understands and appreciates discharge plan. Patient instructed to follow up with primary care physicians and referrals within three to five days from discharge. Furthermore, the patient is instructed to take medications as prescribed and to return to emergency room for evaluation of intractable headache, fever, chills, dizziness, chest pain, shortness of breath , abdominal pain, nausea, vomiting, diarrhea, constipation, and urinary symptoms. This is a brief summary of the patients hospital course. Please see patient chart for full details. Discharge Exam - Additional Findings Additional findings: - Constitutional Appears: Well, No Acute Distress - Head Exam Head Exam: ATRAUMATIC, NORMOCEPHALIC - Eye Exam Eye Exam: Normal appearance - ENT Exam ENT Exam: Mucous Membranes Moist, Normal Exam - Neck Exam Neck Exam: Normal Inspection - Respiratory Exam Respiratory Exam: Clear to Ausculation Bilateral, NORMAL BREATHING PATTERN. absent: Rhonchi, Wheezes, Respiratory Distress - Cardiovascular Exam Cardiovascular Exam: REGULAR RHYTHM, +S1, +S2 - GI/Abdominal Exam GI & Abdominal Exam: Soft, Normal Bowel Sounds. absent: Firm, Guarding, Rigid, Tenderness, Organomegaly, Rebound - Extremities Exam Extremities Exam: absent: Edema - Neurological Exam Neurological Exam: Alert, Awake, Oriented x3 - Psychiatric Exam Psychiatric exam: Normal Affect, Normal Mood - Skin Skin Exam: Dry, Intact, Normal Color, Warm Discharge Plan - Discharge Medications Prescriptions: Ibuprofen [Motrin Tab] 400 mg PO Q6H PRN 14 Days tab PRN Reason: Pain, Moderate (4-7) Gabapentin [Neurontin] 300 mg PO TID 14 Days cap Pantoprazole Sodium [Protonix] 40 mg PO DAILY #30 ect - Follow Up Plan Condition: FAIR Disposition: HOME/ ROUTINE Instructions: Costochondritis, Chest Pain That Is Not Caused by the Heart (DC) , Uterine Fibroids (DC) Additional Instructions: Patient Instructions: 1. Take medications as prescribed New Medications include: Gabapentin [Neurontin] 300 mg PO TID 14 Days cap Ibuprofen [Motrin Tab] 400 mg PO Q6H PRN 14 Days tab PRN Reason: Pain, Moderate (4-7) 2. Follow up with PMD and referrals within three to five days from discharge. 3. Return to the emergency room for evaluation of intractable headache, fever, chills, dizziness, chest pain, shortness of breath, abdominal pain, nausea, vomiting, diarrhea, constipation, and urinary symptoms. Referrals: Christos Michael MD [Primary Care Provider] - Camden Maldonado MD [Staff Provider] - <Sylvia Enrique - Last Filed: 06/17/17 16:17> Provider - Provider Date of Admission: 06/15/17 15:41 Attending physician: Ynes Younger MD Primary care physician: Christos Michael MD Hospital Course - Lab Results Lab Results: Most Recent Lab Values WBC 7.6 10^3/ul (4.5-11.0) 06/17/17 06:25 RBC 3.99 10^6/uL (3.5-6.1) 06/17/17 06:25 Hgb 10.8 g/dL (12.0-16.0) L 06/17/17 06:25 Hct 34.3 % (36.0-48.0) L 06/17/17 06:25 MCV 86.0 fl (80.0-105.0) 06/17/17 06:25 MCH 27.1 pg (25.0-35.0) 06/17/17 06:25 MCHC 31.5 g/dl (31.0-37.0) 06/17/17 06:25 RDW 14.1 % (11.5-14.5) 06/17/17 06:25 Plt Count 282 10^3/uL (120.0-450.0) 06/17/17 06:25 MPV 9.6 fl (7.0-11.0) 06/17/17 06:25 Gran % 64.4 % (50.0-68.0) 06/17/17 06:25 Lymph % (Auto) 26.2 % (22.0-35.0) 06/17/17 06:25 [place] % (Auto) 7.3 % (1.0-6.0) H 06/17/17 06:25 Eos % (Auto) 1.7 % (1.5-5.0) 06/17/17 06:25 Baso % (Auto) 0.4 % (0.0-3.0) 06/17/17 06:25 Gran # 4.92 (1.4-6.5) 06/17/17 06:25 Lymph # (Auto) 2.0 (1.2-3.4) 06/17/17 06:25 [place] # (Auto) 0.6 (0.1-0.6) 06/17/17 06:25 Eos # (Auto) 0.1 (0.0-0.7) 06/17/17 06:25 Baso # (Auto) 0.03 K/mm3 (0.0-2.0) 06/17/17 06:25 PT 11.7 SECONDS (9.4-12.5) 06/16/17 11:00 INR 1.02 (0.93-1.08) 06/16/17 11:00 APTT 31.9 Seconds (25.1-36.5) 06/15/17 14:50 D-Dimer, Quantitative < 200 ng/mL (0-243) 06/15/17 14:50 Sodium 139 mmol/L (132-148) 06/17/17 06:25 Potassium 4.2 mmol/L (3.6-5.0) 06/17/17 06:25 Chloride 104 mmol/L (98-107) 06/17/17 06:25 Carbon Dioxide 24 mmol/L (21-33) 06/17/17 06:25 Anion Gap 15 (10-20) 06/17/17 06:25 BUN 12 mg/dL (7-21) 06/17/17 06:25 Creatinine 0.6 mg/dl (0.7-1.2) L 06/17/17 06:25 Est GFR ( Amer) > 60 06/17/17 06:25 Est GFR (Non-Af Amer) > 60 06/17/17 06:25 Random Glucose 96 mg/dL (70-110) 06/17/17 06:25 Hemoglobin A1c 5.4 % (4.2-6.5) 06/15/17 14:50 Calcium 9.1 mg/dL (8.4-10.5) 06/17/17 06:25 Magnesium 2.1 mg/dL (1.7-2.2) 06/16/17 06:30 Total Bilirubin 0.6 mg/dL (0.2-1.3) 06/17/17 06:25 AST 22 U/L (14-36) 06/17/17 06:25 ALT 29 U/L (7-56) 06/17/17 06:25 Alkaline Phosphatase 80 U/L (38-126) 06/17/17 06:25 Lactate Dehydrogenase 247 U/L (333-699) L 06/16/17 02:25 Total Creatine Kinase 47 U/L (35-230) 06/16/17 02:25 Troponin I < 0.01 ng/mL 06/16/17 02:25 Total Protein 6.3 g/dL (5.8-8.3) 06/17/17 06:25 Albumin 3.6 g/dL (3.0-4.8) 06/17/17 06:25 Globulin 2.8 gm/dL 06/17/17 06:25 Albumin/Globulin Ratio 1.3 (1.1-1.8) 06/17/17 06:25 Triglycerides 204 mg/dL (35-160) H 06/15/17 14:50 Cholesterol 179 mg/dL (130-200) 06/15/17 14:50 LDL Cholesterol Direct 87 mg/dL (0-129) 06/15/17 14:50 HDL Cholesterol 51 mg/dL (29-60) 06/15/17 14:50 Lipase 88 U/L (23-300) 06/15/17 14:50 TSH 3rd Generation 2.29 mIU/mL (0.46-4.68) 06/15/17 20:36 Urine Color Yellow (YELLOW) 06/15/17 20:42 Urine Appearance Clear (CLEAR) 06/15/17 20:42 Urine pH 7.0 (4.7-8.0) 06/15/17 20:42 Ur Specific [place] 1.020 (1.005-1.035) 06/15/17 20:42 Urine Protein Negative mg/dL (<30 mg/dL) 06/15/17 20:42 Urine Glucose (UA) Negative mg/dL (NEGATIVE) 06/15/17 20:42 Urine Ketones Negative mg/dL (NEGATIVE) 06/15/17 20:42 Urine Blood Negative (NEGATIVE) 06/15/17 20:42 Urine Nitrate Negative (NEGATIVE) 06/15/17 20:42 Urine Bilirubin Negative (NEGATIVE) 06/15/17 20:42 Urine Urobilinogen 0.2 E.U./dL (<1 E.U./dL) 06/15/17 20:42 Ur Leukocyte Esterase Negative Susanne/uL (NEGATIVE) 06/15/17 20:42 Urine HCG, Qual Negative (NEGATIVE) 06/15/17 20:42 Hepatitis A IgM Ab Negative (NEGATIVE) 06/16/17 06:00 Hep Bs Antigen Negative (NEGATIVE) 06/16/17 06:00 Hep B Core IgM Ab Negative (NEGATIVE) 06/16/17 06:00 Hepatitis C Antibody Negative (NEGATIVE) 06/16/17 06:00 Attending/Attestation - Attestation I have personally seen and examined this patient.: Yes I have fully participated in the care of the patient.: Yes I have reviewed all pertinent clinical information, including history, physical exam and plan: Yes Notes (Text): 06/17/17 16:14 attending note; Patient seen and examined with resident. Patient is a 46 year old female with a past medical history of hypertension, uterus fibroids, and chronic back pain who presents to the Emergency department for evaluation and treatment of chest pain which started 3 weeks ago after experiencing emotional stress secondary to family issues. started on Neurontin. Tachycardia resolved. Troponin x3 negative. Echocardiogram is normal. Cardiology evaluation appreciated. D-dimer is negative. CTA ordered by cardiology showed no pulmonary embolus. Incidental lytic lesion in the left eighth rib. X-ray of rib series is negative for any lesion. bone scan is negative. There is hypodense fatty infiltration of the liver. There is a hypodense right adrenal nodule, consistent with an adenoma. Within the tail the pancreas, there is a 0.9 x 0.6 cm focus of hypodensity. This may be contributed by volume averaging with the adjacent fat versus a small pancreatic lesion. GI evaluation appreciated. Triple phase CT is negative for any acute findings. GI evaluation appreciated. Started on Protonix. Needs outpatient GI follow up for EGD. Patient is tolerating diet. Fibroid uterus; transvaginal ultrasound showed uterine fibroids and thickened endometrium. Ovarian cyst present. Advised to follow-up with [facility] next week. Reports of all radiological findings given to the family. the diagnosis and follow-up plan discussed with patient in detail.. Upon discharge the patient will follow up with PMD Dr. michael.
--- NOTE | 2017-06-19 10:45 | NM ---
PROCEDURE: Whole Body Bone Scan HISTORY: left rib lytic lesion, COMPARISON: 06/16/2017 left rib radiographs TECHNIQUE: Following administration of 30.0 miCu of Tc MDP multiplanar whole body images were obtained. FINDINGS: Evidence for bony metastatic disease: None. Degenerative uptake: None. Physiologic uptake: Normal physiologic activity in the kidneys. Other findings: None. IMPRESSION: No evidence of bony metastatic disease. No corresponding abnormalities findings on recent CT pulmonary angiogram corresponding to left 8th rib abnormality
== END 2017-06-17 18:15 | disposition home or self-care (01) ==
LOC: ED 14:18 → ERH 15:41 → 2RSO 17:57
PROVIDERS: ADMIT Internal Medicine; ATTEND Internal Medicine
DX: R07.9 Chest pain, unspecified (principal); I10 Essential (primary) hypertension; D25.9 Leiomyoma of uterus, unspecified; M89.9 Disorder of bone, unspecified; E27.8 Other specified disorders of adrenal gland; E87.6 Hypokalemia; F41.9 Anxiety disorder, unspecified; G89.29 Other chronic pain; J45.909 Unspecified asthma, uncomplicated; K59.00 Constipation, unspecified; K76.0 Fatty (change of) liver, not elsewhere classified; N83.209 Unspecified ovarian cyst, unspecified side; N92.0 Excessive and frequent menstruation with regular cycle; Z79.899 Other long term (current) drug therapy; Z80.1 Family history of malignant neoplasm of trachea, bronchus and lung; Z82.49 Family history of ischemic heart disease and other diseases of the circulatory system; Z83.3 Family history of diabetes mellitus; Z90.49 Acquired absence of other specified parts of digestive tract; Z88.0 Allergy status to penicillin
CPT/HCPCS: 36415; 71045; 71100; 71275; 74177; 76700; 76830; 78306; 80053; 80061; 80074; 81003; 82550; 83036; 83615; 83690; 83735; 84443; 84484; 84703; 85025; 85378; 85610; 85730; 86039; 86431; 93005; 93306; 93970; 96374; 99285; A9561; G0378; J1650; J1885; J3480; J7040; Q9967

== ENCOUNTER 2017-07-18 08:20 | Day surgery (SDC) | payer MEDICAID ==
[2017-07-12 09:15] VITALS: BMI 28.5
[2017-07-18] MEDS ORDERED: Propofol 10 mg/ml Inj (20 ML) ONE ×2 (11:01→11:38)
[2017-07-18] MEDS ORDERED: Sodium Chloride 0.9% 1,000 ML IV SCH (12:00)
[2017-07-18 13:10] VITALS: BP 111/63; PULSE 63; RESP 16; TEMP 97.6; O2SAT 99
--- NOTE | 2017-07-18 13:48 | RAD ---
HISTORY: r/o free air COMPARISON: 06/16/2017 FINDINGS: LUNGS: No active pulmonary disease. PLEURA: No significant pleural effusion identified, no pneumothorax apparent. CARDIOVASCULAR: Normal. OSSEOUS STRUCTURES: No significant abnormalities. VISUALIZED UPPER ABDOMEN: Normal. OTHER FINDINGS: None. IMPRESSION: No active disease.
--- NOTE | 2017-07-18 13:49 | RAD ---
HISTORY: abdominal pain COMPARISON: No prior. FINDINGS: BOWEL: Normal. No obstruction. No free air. BONES: Normal. OTHER FINDINGS: None. IMPRESSION: No active disease.
== END 2017-07-18 14:26 | disposition home or self-care (01) ==
LOC: ENDO 08:20
PROVIDERS: ATTEND Internal Medicine
DX: K63.5 Polyp of colon (principal); K29.50 Unspecified chronic gastritis without bleeding; B96.81 Helicobacter pylori [H. pylori] as the cause of diseases classified elsewhere; K31.89 Other diseases of stomach and duodenum; K64.8 Other hemorrhoids; R19.7 Diarrhea, unspecified; I10 Essential (primary) hypertension
CPT/HCPCS: 43239; 45380; 71045; 74018; 84703; 88305; 88342; J2001; J2704; J3010; J7040 ×2